=== PATIENT | female | born 1980 | race Caucasian/White ===

== ENCOUNTER 2024-05-25 15:25 | Emergency (ER) | payer MEDICAID, SELFPAY ==
[2024-05-25 15:37] VITALS: PULSE 68; RESP 18; O2SAT 98
[2024-05-25 16:07] VITALS: BP 124/84; PULSE 67; RESP 18; TEMP 37.2; O2SAT 97; BMI 44.8
--- NOTE | 2024-05-25 16:16 | XR_ITS ---
Examination: CT lumbar spine, without contrast. 2-D sagittal reconstructions. 2-D coronal reconstructions. 3-D reconstructions. Date and time of exam:May 25, 2024 1839 hrs. Indications: Onset mid back pain beginning 5 days ago CTDI: vol (mGy):45.3 DLP: (mGycm):1166 Technique: Multiple 1.25 mm axial sections of the lumbar spine without intravenous contrast have been obtained. 2-D sagittal and coronal reconstructions have been obtained. 3-D reconstructions have been obtained. Low dose protocols were performed. One or more of the following dose reduction techniques were used; automated exposure control, adjustment of the mA and/or KV according to patient size, use of iterative reconstruction technique. Findings: Adequate alignment lumbar vertebral bodies Moderate to advanced disc narrowing L4-L5 moderate disc narrowing L5-S1 No spondylolisthesis No lumbar fracture L5-S1 4 mm central disc bulge contiguous with the right S1 nerve root L4-L5 4 mm central lumbar disc bulge contiguous with the right and left L5 nerve roots L3-L4 no disc protrusion L2-L3 no disc protrusion L1-2 no disc protrusion Impression: Moderate to advanced degenerative disc disease L4-L5 L5-S1 4 mm central disc bulge contiguous with the right S1 nerve root L4-L5 4 mm central lumbar disc bulge contiguous with the right and left L5 demonstrates
--- NOTE | 2024-05-25 16:17 | PD.EDRME ---
Rapid Medical Screening Exam RME Arrival date/time: 05/25/24 15:25 44-year-old female with history of schizophrenia presents to the emergency department via EMS today complains of lower back pain Chief Complaint: Back Pain/Injury Vital signs: Vital Signs Temperature 98.9 F 05/25/24 16:07 Pulse Rate 67 05/25/24 16:07 Respiratory Rate 18 05/25/24 16:07 Blood Pressure 124/84 05/25/24 16:07 Pulse Oximetry (%) 97 05/25/24 16:07 Oxygen Delivery Method Room Air 05/25/24 16:07
[2024-05-25] MEDS: KETOROLAC INJ 60 MG/2 ML VIAL IM (16:21)
[2024-05-25] MEDS: DIAZEPAM 5 MG TABLET 10 MG PO (16:21)
[2024-05-25 16:54] LABS: Collection Type, Urine Clean Catch
[2024-05-25 17:02] LABS: Bacteria,Urine 2+; Bilirubin,Urine Negative (Negative); Blood,Urine Trace (Negative); Clarity,Urine Turbid (Clear/Hazy); Color,Urine Lt-Green (Lt Yel-Yel); Culture Indicated,Urine Contaminated; Glucose, Urine Trace (Negative); Ketones,Urine 1+ (Negative); Leukocyte Esterase,Urine Positive (Negative); Nitrite,Urine Negative (Negative); PH,Urine 6.5 (5.0-7.0); Protein,Urine 2+ (Neg - Trace); RBC,Urine 22 /hpf (0-3); Squamous Epithelial Cell,Urine 18 /hpf (0-5); WBC,Urine 22 /hpf (0-5)
[2024-05-25 17:11] LABS: Specific Gravity,Urine > 1.030 (1.001-1.035)
[2024-05-25 17:23] LABS: Basophils % (Auto) 0 % (0-2.5); Eosinophils % (Auto) 0 % (0-10); Hematocrit 35.2 % (36.0-46.0); Hemoglobin 12.1 g/dL (12.0-16.0); Immature Granulocytes % (Auto) 0 % (0-0); Immature Granulocytes Auto 0.06 Thou/mm3 (0.00-0.00); Lymphocytes # (Auto) 4.7 Thou/mm3 (1.0-4.8); Lymphocytes % (Auto) 29 % (10-50); Mean Corpuscular HGB Conc 34.4 g/dl (31.0-37.0); Mean Corpuscular Hemoglobin 29.4 pg (25.0-35.0); Mean Corpuscular Volume 86 fL (80-100); Monocytes # (Auto) 1.2 Thou/mm3 (0.0-0.8); Monocytes % (Auto) 8 % (0-12); Neutrophils # (Auto) 10.1 Thou/mm3 (1.8-7.7); Neutrophils % (Auto) 63 % (37-80); Nucleated Red Blood Cell % 0 /100 WBC (0); Platelet Count 328 Thou/mm3 (140-440); RDW Standard Deviation 43.2 fL (36.4-46.3); Red Blood Count 4.11 Miln/mm3 (4.00-5.20); White Blood Count 16.1 Thou/mm3 (3.6-11.0)
[2024-05-25 17:38] LABS: Alanine Aminotransferase 14 U/L (10-49); Albumin, Serum 4.4 gm/dL (3.5-5.0); Albumin/Globulin Ratio 1.6 (1.2-2.2); Alkaline Phosphatase 77 U/L (46-116); Anion Gap 9 (7-16); Aspartate Amino Transferase 13 U/L (0-34); BUN/Creatinine Ratio 21 Ratio (12-20); Bilirubin,Total 0.3 mg/dL (0.3-1.2); Blood Urea Nitrogen 19 mg/dL (9-23); Calcium 9.1 mg/dL (8.3-10.6); Calcium (Corrected) 9.1 mg/dL (8.5-10.1); Carbon Dioxide 22.9 mMol/L (20.0-31.0); Chloride 106 mMol/L (98-107); Creatinine (Component) 0.9 mg/dL (0.6-1.3); Estimated Creatinine Clearance 91.9 mL/min (>60); Globulin 2.7 gm/dL (2.3-3.5); Glucose 94 mg/dL (74-106); Osmolality,Calculated 277 (275-295); Potassium 3.8 mMol/L (3.4-5.1); Sodium 138 mMol/L (136-145); Total Protein 7.1 gm/dL (5.7-8.2); eGFR > 60 See Note
[2024-05-25 17:42] LABS: HCG,Qualitative Serum Negative
[2024-05-25 19:59] VITALS: BP 130/81; PULSE 60; RESP 19; TEMP 36.5; O2SAT 98
--- NOTE | 2024-05-25 20:06 | PD.EDADULT ---
ED General RME/HPI General Chief complaint: Back Pain/Injury Stated complaint: BACK PAIN Time Seen by Provider: 05/25/24 19:24 Arrival date/time: 05/25/24 15:25 CC: Left low back pain HPI onset 4 days ago, states has been taking ibuprofen without relief denies fall blunt trauma repetitive motion does not recall how it started. Patient states pain does radiate down her back of her left buttock. Patient denies bowel or bladder symptoms saddle anesthesia and complains of some mild tingling in both of her toes. Patient is awake alert oriented. RME / HPI RME / HPI narrative: 05/25/24 15:25 44-year-old female with history of schizophrenia presents to the emergency department via EMS today complains of lower back pain Related Data Home Medications ?Medication ?Instructions ?Recorded ?Confirmed divalproex 500 mg tablet,delayed 500 mg PO TID 09/14/20 03/08/23 release cyclobenzaprine 10 mg tablet 5 mg PO BID 10/24/20 03/08/23 ibuprofen 800 mg tablet 600 mg PO TID 10/24/20 03/08/23 metformin 500 mg tablet 500 mg PO BIDWM 10/24/20 03/08/23 ondansetron HCl 4 mg tablet 4 mg PO Q8HR PRN nausea and 10/24/20 03/08/23 vommitting propranolol 10 mg tablet 10 mg PO BID 10/24/20 03/08/23 trazodone 50 mg tablet 100 mg PO HS 10/24/20 03/08/23 famotidine 20 mg tablet 20 mg PO HS PRN Acid Reflux 03/08/23 03/08/23 loratadine 10 mg tablet 10 mg PO QDAY PRN Allergy Symptoms 03/08/23 03/08/23 prazosin 1 mg capsule 1 mg PO QPM 03/08/23 03/08/23 Previous Rx's ?Medication ?Instructions ?Recorded acetaminophen 325 mg tablet 325 mg PO QID PRN pain #40 tabs 02/07/22 (Tylenol) cyclobenzaprine 10 mg tablet 10 mg PO HS #14 tabs 05/25/24 prednisone 20 mg tablet See Taper PO BID 3 days #6 tabs 05/25/24 Allergies Allergy/AdvReac Type Severity Reaction Status Date / Time codeine Allergy Severe Anaphylaxis Verified 05/25/24 15:41 Iodine and Iodide Containing Allergy Severe Anaphylaxis Verified 05/25/24 15:41 Produc Review of Systems Review of Systems Narrative Review of Systems: GEN: No fever, no chills, no weight loss EYES: No discharge, no visual changes, no pain HEENT: No ear pain, no congestion, no sore throat PULM: No shortness of breath, no cough, no congestion CV: No chest pain, no dyspnea on exertion, no palpitations GI: No nausea, no vomiting, no diarrhea, + pain, no constipation : No frequency, no urgency, no dysuria MUSC/SKEL: No joint pain, no back pain SKIN: No rash PSYCH: No hallucinations, no depression HEME/LYMPH: No easy bleeding or bruising tendencies NEURO: No weakness, no headache Past Medical History Past Medical History NEUROLOGIC: Positive Seizures CARDIAC: Positive Cardiac Disorders and Hypertension; Negative Congestive Heart Failure RESPIRATORY: Negative Chronic Obstructive Pulmonary Disease (COPD) GENITOURINARY: Negative Renal Disease ENDOCRINE: Positive Endocrine Disorders; Negative Diabetes Mellitus Type 1 or Diabetes Mellitus Type 2 PSYCHO/SOCIAL: Positive Schizophrenia Social History SMOKING STATUS: Current every day smoker 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 ED Exam Narrative Physical exam: [General: Morbidly obese in mild discomfort but not in any acute distress Head normocephalic HEENT: Within acceptable limits Neck is supple nontender Chest equal chest rise nontender to palpation Respiratory: Clear to auscultation no wheezes crackles or rubs CV: Rate rhythm is regular no murmurs rubs or clicks Abdomen is grossly distended secondary to body habitus soft nontender no masses positive bowel sounds all 4 quadrants Back: Left lumbar paraspinal tenderness with palpation no spinous process tenderness no right sided paraspinal tenderness with palpation no thoracic or cervical pain with palpation. Skin: Intact no petechiae rash induration ulceration or crepitus Extremities: Moving all extremity against resistance cap refill less than 2 seconds neurosensory intact Neuro: Awake alert oriented x3 Glascow coma 15 no focal deficits] Course Course Course Narrative: Patient states the pain is improved after getting the shot while in the waiting room for pain relief. This time comfortable discharging the patient home. Quality Measures none Orders Category Date Time Status CT lumbar spine wo con Stat Exams 05/25/24 16:16 Completed CBC Stat Lab 05/25/24 17:14 Completed Comprehensive Metabolic Panel Stat Lab 05/25/24 17:14 Completed HCG,Qualitative Serum Stat Lab 05/25/24 17:14 Completed UA, C/S IF [Urinalysis, C/S if Indicated] Stat Lab 05/25/24 16:33 Completed Diazepam [Valium] Med 05/25/24 16:16 Discontinued 10 mg PO X1 ONE Ketorolac Inj [Toradol Inj] Med 05/25/24 16:16 Discontinued 60 mg IM X1 ONE Vital Signs Vital signs: Vital Signs Temperature 98.9 F 05/25/24 16:07 Pulse Rate 67 05/25/24 16:07 Respiratory Rate 18 05/25/24 16:07 Blood Pressure 124/84 05/25/24 16:07 Pulse Oximetry (%) 97 05/25/24 16:07 Oxygen Delivery Method Room Air 05/25/24 16:07 [facility] Patient data External records reviewed:: [facility] previous records Clinical information provided by:: patient Social determinants that could affect healthcare access:: none Patient has the following chronic illnesses:: Schizophrenia How is presenting disease/condition affected by chronic disease/condition?: uneffected by Evaluation data The following diagnostics were reviewed and interpreted by me:: lab results and radiology exam(s) Lab and/or radiology exams considered but not ordered:: CBC shows a leukocytosis of 16.1, H&H of 12 and 35 respectively with platelets at 328 CMP shows no acute electrolyte imbalances renal impairment transaminitis or T. bili elevation Urine is turbid, 22 RBCs 22 WBCs 18 squamous epithelial are 2+ bacteria is a contaminated specimen. CT of the spine shows a L4-5 S1 degenerative disc disease. Interpretation Summary: Low back strain with sciatica. Medications Medications considered but not ordered:: None Medication administrations:: Medication Administration History Discontinued Medications Diazepam (Diazepam 5 Mg Tablet) 10 mg PO X1 ONE Stop: 05/25/24 16:17 Last Admin: 05/25/24 16:21 Dose: 10 mg Documented By: EO Ketorolac Tromethamine (Ketorolac Inj 60 Mg/2 Ml Vial) 60 mg IM X1 ONE Stop: 05/25/24 16:17 Last Admin: 05/25/24 16:21 Dose: 60 mg Documented By: EO None Consultations Consultation(s) initiated? (list below): No Diagnosis Differential Diagnosis ED Complaint MDM: Low back fracture, low back strain UTI Most likely diagnosis given after review of the tests above:: Low back pain Admission Indicated Admission indicated?: not indicated Explain why admission is indicated or not indicated:: Stable for discharge Admission Request Was there a request for admission?: No Disposition Plan Disposition Plan: Discharge Discharge Attestation Discharge Attestation: The patient and all family members were given an opportunity to ask questions and understood the discharge instructions. Discharge instructions specifically effects, indications for sooner follow up or return to the emergency department, and the expected course of current diagnosis. Patient condition: Stable Medical Decision Making Differential Diagnosis Differential Diagnosis: Low back fracture, low back strain UTI Lab Data 05/25/24 17:14 05/25/24 17:14 Labs: Lab Results 05/25/24 05/25/24 Range/Units 16:33 17:14 WBC 16.1 H (3.6-11.0) Thou/mm3 RBC 4.11 (4.00-5.20) Miln/mm3 Hgb 12.1 (12.0-16.0) g/dL Hct 35.2 L (36.0-46.0) % MCV 86 (80-100) fL MCH 29.4 (25.0-35.0) pg MCHC 34.4 (31.0-37.0) g/dl RDW Std Deviation 43.2 (36.4-46.3) fL Plt Count 328 (140-440) Thou/mm3 Neut % (Auto) 63 (37-80) % Lymph % (Auto) 29 (10-50) % [place] % (Auto) 8 (0-12) % Eos % (Auto) 0 (0-10) % Baso % (Auto) 0 (0-2.5) % Neut # (Auto) 10.1 H (1.8-7.7) Thou/mm3 Lymph # (Auto) 4.7 (1.0-4.8) Thou/mm3 [place] # (Auto) 1.2 H (0.0-0.8) Thou/mm3 Eos # (Auto) 0.0 (0.0-0.5) Thou/mm3 Baso # (Auto) 0.0 (0.0-0.2) Thou/mm3 Immature Gran # (Auto) 0.06 H (0.00-0.00) Thou/mm3 Absolute Nucleated RBC 0.00 (0.00-0.00) Thou/mm3 Immature Gran % 0 (0-0) % Nucleated RBC % 0 (0) /100 WBC Sodium 138 (136-145) mMol/L Potassium 3.8 (3.4-5.1) mMol/L Chloride 106 (98-107) mMol/L Carbon Dioxide 22.9 (20.0-31.0) mMol/L Anion Gap 9 (7-16) BUN 19 (9-23) mg/dL Creatinine 0.9 (0.6-1.3) mg/dL Estim Creat Clear Calc 91.9 (>60) mL/min eGFR > 60 (60 - ) See Note BUN/Creatinine Ratio 21 H (12-20) Ratio Glucose 94 (74-106) mg/dL Calculated Osmolality 277 (275-295) Calcium 9.1 (8.3-10.6) mg/dL Corrected Calcium 9.1 (8.5-10.1) mg/dL Total Bilirubin 0.3 (0.3-1.2) mg/dL AST 13 (0-34) U/L ALT 14 (10-49) U/L Alkaline Phosphatase 77 (46-116) U/L Total Protein 7.1 (5.7-8.2) gm/dL Albumin 4.4 (3.5-5.0) gm/dL Globulin 2.7 (2.3-3.5) gm/dL Albumin/Globulin Ratio 1.6 (1.2-2.2) HCG, Qual Negative Ur Collection Type Clean Catch Urine Color Lt-Green A (Lt Yel-Yel) Urine Clarity Turbid A (Clear/Hazy) Urine pH 6.5 (5.0-7.0) Ur Specific [place] > 1.030 (1.001-1.035) Urine Protein 2+ A (Neg - Trace) Urine Glucose (UA) Trace (Negative) Urine Ketones 1+ A (Negative) Urine Blood Trace (Negative) Urine Nitrite Negative (Negative) Urine Bilirubin Negative (Negative) Urine Urobilinogen (Auto) 2.0 (0.0-1.0) mg/dL Ur Leukocyte Esterase Positive (Negative) Urine RBC 22 H (0-3) /hpf Urine WBC 22 H (0-5) /hpf Ur Squamous Epith Cells 18 H (0-5) /hpf Urine Bacteria 2+ A (None) Ur Culture Indicated? Contaminated Discharge Plan Plan Patient Disposition: HOME (Self Care) Patient condition on transfer: Stable Prescriptions/Referrals Prescriptions/Med Rec: New cyclobenzaprine 10 mg tablet 10 mg PO HS Qty: 14 0RF prednisone 20 mg tablet See Taper PO BID 3 Days Qty: 6 0RF Taper: Prednisone Taper 20 mg DAILY for 2 Days and 0 Hour 10 mg DAILY for 2 Days and 0 Hour 5 mg DAILY for 7 Days and 0 Hour No Action cyclobenzaprine 10 mg tablet 5 mg PO BID Patient Comments: take 1 tablet by mouth twice a day metformin 500 mg tablet 500 mg PO BIDWM Patient Comments: take 1 tablet by mouth every morning and evening with meals trazodone 50 mg tablet 100 mg PO HS Patient Comments: TAKE ONE TABLET BY MOUTH AT BEDTIME ibuprofen 800 mg tablet 600 mg PO TID Patient Comments: take 1 tablet by mouth three times a day with food if needed for headache ondansetron HCl 4 mg tablet 4 mg PO Q8HR PRN (Reason: nausea and vommitting) Patient Comments: take 1 tablet by mouth every 8 hours if needed for nausea and vomiting propranolol 10 mg tablet 10 mg PO BID Patient Comments: take 1 tablet by mouth once daily divalproex 500 mg tablet,delayed release (DR/EC) 500 mg PO TID Patient Comments: take 1 tablet by mouth twice a day acetaminophen [Tylenol] 325 mg tablet 325 mg PO QID PRN (Reason: pain) Qty: 40 0RF prazosin 1 mg Capsule 1 mg PO QPM famotidine 20 mg Tablet 20 mg PO HS PRN (Reason: Acid Reflux) loratadine 10 mg Tablet 10 mg PO QDAY PRN (Reason: Allergy Symptoms) Problem List Clinical Impression: Sciatica Patient/Caregiver Discharge Instructions Education Materials: ED Sciatica Additional Instructions: Take the medications as prescribed for temporary pain relief. There is worsening of symptoms return to your primary care doctor or the ER for further evaluation. Print Language: Persian Stand Alone Forms: Fátima Award Info., Work/School Release, Patient Portal Info Letter PA/FARMWORKER DIV[employer] CROPS Supervising Physician PA/FARMWORK[employer]OPS Supervising Physician: Kelvin Fernandez ENP
== END 2024-05-25 20:21 | disposition home or self-care (01) ==
LOC: SERX 21:02
PROVIDERS: Nurse Practitioner Primary Care; Emergency Provider Emergency Medicine
DX: M51.17 Intervertebral disc disorders with radiculopathy, lumbosacral region (principal); D72.829 Elevated white blood cell count, unspecified
CPT/HCPCS: 36415; 72131; 80053; 81001; 84703; 85025; 96372; 99284; J1885; A9270

== ENCOUNTER 2024-09-17 10:34 | Emergency (ER) | payer MEDICAID, SELFPAY ==
[2024-09-17 10:35] VITALS: PULSE 64; RESP 18; O2SAT 98; BMI 42.0
[2024-09-17 10:38] VITALS: BP 125/74; PULSE 61; RESP 18; TEMP 36.6; O2SAT 100
--- NOTE | 2024-09-17 10:41 | PD.EDADULT ---
ED General RME/HPI General Chief complaint: Seizure Stated complaint: SEIZURES Time Seen by Provider: 09/17/24 10:39 Arrival date/time: 09/17/24 10:34 RME / HPI RME / HPI narrative: DR. SOLANO MAIN ED EVALUATION: 44 year old female with past medical history significant for seizures, hypertension, schizophrenia, and methamphetamine abuse presents to the Emergency Department [facility] with complaint of seizure. At 1040 hours, patient arrived and had another seizure here. No further history obtainable at this time. Related Data Home Medications ?Medication ?Instructions ?Recorded ?Confirmed divalproex 500 mg tablet,delayed 500 mg PO TID 09/14/20 03/08/23 release cyclobenzaprine 10 mg tablet 5 mg PO BID 10/24/20 03/08/23 ibuprofen 800 mg tablet 600 mg PO TID 10/24/20 03/08/23 metformin 500 mg tablet 500 mg PO BIDWM 10/24/20 03/08/23 ondansetron HCl 4 mg tablet 4 mg PO Q8HR PRN nausea and 10/24/20 03/08/23 vommitting propranolol 10 mg tablet 10 mg PO BID 10/24/20 03/08/23 trazodone 50 mg tablet 100 mg PO HS 10/24/20 03/08/23 famotidine 20 mg tablet 20 mg PO HS PRN Acid Reflux 03/08/23 03/08/23 loratadine 10 mg tablet 10 mg PO QDAY PRN Allergy Symptoms 03/08/23 03/08/23 prazosin 1 mg capsule 1 mg PO QPM 03/08/23 03/08/23 Previous Rx's ?Medication ?Instructions ?Recorded acetaminophen 325 mg tablet 325 mg PO QID PRN pain #40 tabs 02/07/22 (Tylenol) cyclobenzaprine 10 mg tablet 10 mg PO HS #14 tabs 05/25/24 Allergies Allergy/AdvReac Type Severity Reaction Status Date / Time codeine Allergy Severe Anaphylaxis Verified 09/17/24 10:40 Iodine and Iodide Containing Allergy Severe Anaphylaxis Verified 09/17/24 10:40 Produc Review of Systems Review of Systems ROS Unobtainable: unobtainable due to medical condition Past Medical History Past Medical History NEUROLOGIC: Positive Seizures CARDIAC: Positive Cardiac Disorders and Hypertension ENDOCRINE: Positive Endocrine Disorders PSYCHO/SOCIAL: Positive Schizophrenia Social History SMOKING STATUS: Former smoker 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 ALCOHOL: Never Course Quality Measures none Orders Category Date Time Status CBC Stat Lab 09/17/24 11:00 Completed CMP [Comprehensive Metabolic Panel] Stat Lab 09/17/24 11:00 Completed LORazepam [Ativan Inj] Med 09/17/24 10:35 Discontinued 2 mg .ROUTE .STK-MED ONE LORazepam [Ativan Inj] Med 09/17/24 10:43 Discontinued 2 mg IVP X1 ONE Vital Signs Vital signs: Vital Signs Temperature 97.8 F 09/17/24 10:38 Pulse Rate 61 09/17/24 10:38 Respiratory Rate 18 09/17/24 10:38 Blood Pressure 125/74 09/17/24 10:38 Pulse Oximetry (%) 100 09/17/24 10:38 Oxygen Delivery Method Nasal Cannula 09/17/24 10:38 Oxygen Flow Rate 4 09/17/24 10:38 Discharge Plan Plan Patient Disposition: HOME (Self Care) Patient condition on transfer: Stable Prescriptions/Referrals Prescriptions/Med Rec: No Action cyclobenzaprine 10 mg tablet 5 mg PO BID Patient Comments: take 1 tablet by mouth twice a day metformin 500 mg tablet 500 mg PO BIDWM Patient Comments: take 1 tablet by mouth every morning and evening with meals trazodone 50 mg tablet 100 mg PO HS Patient Comments: TAKE ONE TABLET BY MOUTH AT BEDTIME ibuprofen 800 mg tablet 600 mg PO TID Patient Comments: take 1 tablet by mouth three times a day with food if needed for headache ondansetron HCl 4 mg tablet 4 mg PO Q8HR PRN (Reason: nausea and vommitting) Patient Comments: take 1 tablet by mouth every 8 hours if needed for nausea and vomiting propranolol 10 mg tablet 10 mg PO BID Patient Comments: take 1 tablet by mouth once daily divalproex 500 mg tablet,delayed release (DR/EC) 500 mg PO TID Patient Comments: take 1 tablet by mouth twice a day acetaminophen [Tylenol] 325 mg tablet 325 mg PO QID PRN (Reason: pain) Qty: 40 0RF cyclobenzaprine 10 mg tablet 10 mg PO HS Qty: 14 0RF prazosin 1 mg Capsule 1 mg PO QPM famotidine 20 mg Tablet 20 mg PO HS PRN (Reason: Acid Reflux) loratadine 10 mg Tablet 10 mg PO QDAY PRN (Reason: Allergy Symptoms) Referrals: Maco Lemos MD [Primary Care Provider] - In 1 week Problem List Clinical Impression: Epileptic seizure Patient/Caregiver Discharge Instructions Discharge Activity: activity as tolerated Education Materials: ED Seizure, Recurrent (Adult) Print Language: Welsh Stand Alone Forms: Fátima Award Info., Patient Portal Info Letter MDM Narrative MDM hospital course: Patient has been on Depakote since June. This is her first seizure after initiation of the Depakote. She used to be on Keppra, which flashing lights triggered a seizure in her, therefore her neurologist decided to change her to Keppra. Patient received benzodiazepine here in the emergency department and was observed for extended length of time to ensure stability before discharge. Clinical Information Provided by EMS Medical Records Reviewed EMS Meds/Rx Considered, not Ordered None Labs/Rad/Tests considered, not Ordered None Chronic Illness/Social Conditions Add or document further as needed: Seizures, hypertension, schizophrenia, and methamphetamine abuse. Lab Interpretation Labs: interpreted by nd Lab(s) interpretation(s): Basic labs are unremarkable Medication Administration(s) Medication Administration History Discontinued Medications Lorazepam (Lorazepam 2 Mg/Ml Vial) 2 mg IVP X1 ONE Stop: 09/17/24 10:44 Last Admin: 09/17/24 10:44 Dose: 2 mg Documented By: VG Lorazepam (Lorazepam 2 Mg/Ml Vial) Confirm Administered Dose 2 mg .ROUTE .STK-MED ONE Stop: 09/17/24 10:36 Last Admin: 09/17/24 10:43 Dose: Not Given Documented By: VG Non-Admin Reason: Duplicate Medication on eMAR Diagnosis Differential diagnosis: Seizure disorder, epilepsy, medication noncompliance Dispositon Disposition: Discharge Home
[2024-09-17] MEDS: LORazepam 2 MG/ML VIAL IVP (10:44)
[2024-09-17 11:07] LABS: Basophils % (Auto) 0 % (0-2.5); Eosinophils # (Auto) 0.1 Thou/mm3 (0.0-0.5); Eosinophils % (Auto) 1 % (0-10); Hematocrit 35.2 % (36.0-46.0); Hemoglobin 12.2 g/dL (12.0-16.0); Immature Granulocytes % (Auto) 0 % (0-0); Immature Granulocytes Auto 0.02 Thou/mm3 (0.00-0.00); Lymphocytes # (Auto) 2.6 Thou/mm3 (1.0-4.8); Lymphocytes % (Auto) 41 % (10-50); Mean Corpuscular HGB Conc 34.7 g/dl (31.0-37.0); Mean Corpuscular Hemoglobin 29.6 pg (25.0-35.0); Mean Corpuscular Volume 85 fL (80-100); Monocytes # (Auto) 0.4 Thou/mm3 (0.0-0.8); Monocytes % (Auto) 7 % (0-12); Neutrophils # (Auto) 3.3 Thou/mm3 (1.8-7.7); Neutrophils % (Auto) 51 % (37-80); Nucleated Red Blood Cell % 0 /100 WBC (0); Platelet Count 312 Thou/mm3 (140-440); RDW Standard Deviation 45.3 fL (36.4-46.3); Red Blood Count 4.12 Miln/mm3 (4.00-5.20); White Blood Count 6.4 Thou/mm3 (3.6-11.0)
[2024-09-17 11:14] VITALS: BP 107/75; PULSE 66; RESP 15; TEMP 36.5; O2SAT 97
[2024-09-17 11:22] LABS: Alanine Aminotransferase 18 U/L (10-49); Albumin, Serum 4.2 gm/dL (3.5-5.0); Albumin/Globulin Ratio 1.8 (1.2-2.2); Alkaline Phosphatase 77 U/L (46-116); Anion Gap 8 (7-16); BUN/Creatinine Ratio 18 Ratio (12-20); Bilirubin,Total 0.3 mg/dL (0.3-1.2); Blood Urea Nitrogen 16 mg/dL (9-23); Calcium 8.7 mg/dL (8.3-10.6); Calcium (Corrected) 8.7 mg/dL (8.5-10.1); Carbon Dioxide 25.6 mMol/L (20.0-31.0); Chloride 109 mMol/L (98-107); Creatinine (Component) 0.9 mg/dL (0.6-1.3); Estimated Creatinine Clearance 88.5 mL/min (>60); Globulin 2.3 gm/dL (2.3-3.5); Glucose 103 mg/dL (74-106); Osmolality,Calculated 286 (275-295); Potassium 4.2 mMol/L (3.4-5.1); Sodium 143 mMol/L (136-145); Total Protein 6.5 gm/dL (5.7-8.2); eGFR > 60 See Note
[2024-09-17 11:56] VITALS: BP 119/65; PULSE 67; RESP 16; TEMP 36.6; O2SAT 98
== END 2024-09-17 12:10 | disposition home or self-care (01) ==
PROVIDERS: Emergency Provider Emergency Medicine; PCP Family Medicine
DX: G40.909 Epilepsy, unspecified, not intractable, without status epilepticus (principal); F20.9 Schizophrenia, unspecified; I10 Essential (primary) hypertension
CPT/HCPCS: 36415; 80053; 85025; 96374; 99284; J2060

== ENCOUNTER 2024-10-22 16:52 | Emergency (ER) | payer MEDICAID, SELFPAY ==
[2024-10-22 16:52] VITALS: BMI 41.3
--- NOTE | 2024-10-22 16:58 | EKG_ITS ---
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
[2024-10-22 17:00] VITALS: BP 127/81; PULSE 89; RESP 17; TEMP 36.7; O2SAT 97; BMI 41.3
--- NOTE | 2024-10-22 17:03 | XR_ITS ---
Examination: PA lateral chest 2 views TECHNIQUE: Upright PA and lateral chest 2 views Date and time: October 22, 2024 1715 hours INDICATION: Chest pain shortness of breath and 8. FINDINGS: Normal heart size. No pneumonia identified. The osseous structures are intact. IMPRESSION: No active disease.
--- NOTE | 2024-10-22 17:03 | XR_ITS ---
Examination: Breast ultrasound, unilateral, right complete Date and time of exam: October 22, 2024 1746 hours INDICATIONS: Right breast pain today Technique: Real-time avalos scale ultrasonographic imaging performed right breast including all 4 quadrants as well as nipple retroareolar and axillary region. Findings: No cystic or solid mass IMPRESSION: BI-RADS Category 1: Negative study Recommend elective diagnostic mammography follow-up
--- NOTE | 2024-10-22 17:03 | PD.EDRME ---
Rapid Medical Screening Exam RME Arrival date/time: 10/22/24 16:52 44-year-old female presents department today for complaint of chest pain Chief Complaint: Chest Pain Vital signs: Vital Signs Temperature 98.0 F 10/22/24 17:00 Pulse Rate 89 10/22/24 17:00 Respiratory Rate 17 10/22/24 17:00 Blood Pressure 127/81 10/22/24 17:00 Pulse Oximetry (%) 97 10/22/24 17:00 Oxygen Delivery Method Room Air 10/22/24 17:00
[2024-10-22 17:18] LABS: Basophils # (Auto) 0.0 Thou/mm3 (0.0-0.2); Basophils % (Auto) 0 % (0-2.5); Eosinophils # (Auto) 0.1 Thou/mm3 (0.0-0.5); Eosinophils % (Auto) 1 % (0-10); Hematocrit 35.9 % (36.0-46.0); Hemoglobin 11.9 g/dL (12.0-16.0); Immature Granulocytes Auto 0.02 Thou/mm3 (0.00-0.00); Lymphocytes # (Auto) 3.1 Thou/mm3 (1.0-4.8); Lymphocytes % (Auto) 39 % (10-50); Mean Corpuscular HGB Conc 33.1 g/dl (31.0-37.0); Mean Corpuscular Hemoglobin 29.8 pg (25.0-35.0); Mean Corpuscular Volume 90 fL (80-100); Monocytes # (Auto) 0.5 Thou/mm3 (0.0-0.8); Monocytes % (Auto) 7 % (0-12); Neutrophils # (Auto) 4.2 Thou/mm3 (1.8-7.7); Neutrophils % (Auto) 53 % (37-80); Nucleated Red Blood Cell # 0.00 Thou/mm3 (0.00-0.00); Nucleated Red Blood Cell % 0 /100 WBC (0); Platelet Count 334 Thou/mm3 (140-440); RDW Standard Deviation 48.8 fL (36.4-46.3); Red Blood Count 4.00 Miln/mm3 (4.00-5.20); White Blood Count 8.0 Thou/mm3 (3.6-11.0)
[2024-10-22 17:39] LABS: Alanine Aminotransferase 13 U/L (10-49); Albumin, Serum 4.1 gm/dL (3.5-5.0); Albumin/Globulin Ratio 1.7 (1.2-2.2); Alkaline Phosphatase 77 U/L (46-116); Anion Gap 6 (7-16); Aspartate Amino Transferase 13 U/L (0-34); BUN/Creatinine Ratio 10 Ratio (12-20); Bilirubin,Total 0.2 mg/dL (0.3-1.2); Blood Urea Nitrogen 8 mg/dL (9-23); Calcium 8.6 mg/dL (8.3-10.6); Calcium (Corrected) 8.6 mg/dL (8.5-10.1); Carbon Dioxide 24.7 mMol/L (20.0-31.0); Chloride 110 mMol/L (98-107); Creatinine (Component) 0.8 mg/dL (0.6-1.3); Estimated Creatinine Clearance 98.6 mL/min (>60); Globulin 2.4 gm/dL (2.3-3.5); Glucose 111 mg/dL (74-106); Osmolality,Calculated 280 (275-295); Potassium 4.1 mMol/L (3.4-5.1); Sodium 141 mMol/L (136-145); Total Protein 6.5 gm/dL (5.7-8.2); Troponin I < 0.002 ng/mL (0.0-0.045); eGFR > 60 See Note
[2024-10-22] MEDS: IBUPROFEN TAB 400 MG TABLET 800 MG PO (18:20)
--- NOTE | 2024-10-22 19:01 | PD.EDCHEST ---
ED Chest Pain RME/HPI General Chief Complaint: Chest Pain Stated Complaint: CHEST PAIN SINCE AM Time Seen by Provider: 10/22/24 17:55 Arrival date/time: 10/22/24 16:52 RME / HPI RME / HPI narrative: 44-year-old female presents department today for complaint of chest pain. Onset of symptoms since earlier this morning, as right-sided chest pain, more on chest wall, described as dull ache, severity moderate. Patient denies any fall. Denies any cough denies any other current complaints. No medication was taken prior to ER visit. Related Data Home Medications ?Medication ?Instructions ?Recorded ?Confirmed divalproex 500 mg tablet,delayed 500 mg PO TID 09/14/20 03/08/23 release cyclobenzaprine 10 mg tablet 5 mg PO BID 10/24/20 03/08/23 ibuprofen 800 mg tablet 600 mg PO TID 10/24/20 03/08/23 metformin 500 mg tablet 500 mg PO BIDWM 10/24/20 03/08/23 ondansetron HCl 4 mg tablet 4 mg PO Q8HR PRN nausea and 10/24/20 03/08/23 vommitting propranolol 10 mg tablet 10 mg PO BID 10/24/20 03/08/23 trazodone 50 mg tablet 100 mg PO HS 10/24/20 03/08/23 famotidine 20 mg tablet 20 mg PO HS PRN Acid Reflux 03/08/23 03/08/23 loratadine 10 mg tablet 10 mg PO QDAY PRN Allergy Symptoms 03/08/23 03/08/23 prazosin 1 mg capsule 1 mg PO QPM 03/08/23 03/08/23 Previous Rx's ?Medication ?Instructions ?Recorded acetaminophen 325 mg tablet 325 mg PO QID PRN pain #40 tabs 02/07/22 (Tylenol) cyclobenzaprine 10 mg tablet 10 mg PO HS #14 tabs 05/25/24 ibuprofen 800 mg tablet 800 mg PO TID PRN pain #30 tabs 10/22/24 pantoprazole 40 mg tablet,delayed 40 mg PO QDAY #20 tabs 10/22/24 release (Protonix) Allergies Allergy/AdvReac Type Severity Reaction Status Date / Time codeine Allergy Severe Anaphylaxis Verified 10/22/24 16:54 Iodine and Iodide Containing Allergy Severe Anaphylaxis Verified 10/22/24 16:54 Produc Review of Systems Review of Systems Narrative Review of Systems: Review of system reviewed and within normal limits except mentioned in HPI ED Exam Narrative Physical exam: VITAL SIGNS: Reviewed. GENERAL APPEARANCE: Alert and interactive, follows commands, no acute distress, HEAD AND FACE: Non-traumatic. ENT: PERRL, pink conjunctivitis, eyelid no trauma, Mucous membrane moist. NECK: Supple, nontender, no nuchal rigidity. CHEST: Right chest wall tenderness, no redness noted no masses palpated, no crepitus, no paradoxical movement, no retractions. LUNGS: Clear, well ventilated, symmetric, no rales, no wheezing, no ronchi, no stridor, good breath sounds bilaterally. HEART: Regular rate, regular rhythm, no murmur, no gallops. ABDOMEN: Soft, positive bowel sounds, nondistended, no guarding, nontender, no rebound, no masses, RECTAL: Deferred. GENITAL: Deferred. NEUROLOGICAL: Gross motor function intact sensory function intact, Appropriate for age. MUSCULOSKELETAL: low back nontender, full range of motion. EXTREMITIES: Nontender, full range of motion. SKIN: Color pink, dry, no rash, no lacerations, no abrasions, no contusions. LYMPHATICS: Deferred. Course Quality Measures none Orders Category Date Time Status EKG (ED ONLY) *Do not use* NOW Care 10/22/24 16:58 Completed EKG (ED Only) Stat Exams 10/22/24 16:58 Draft US breast RT complete Stat Exams 10/22/24 17:03 Completed XR chest 2V Stat Exams 10/22/24 17:03 Completed CBC Stat Lab 10/22/24 17:10 Completed Comprehensive Metabolic Panel Stat Lab 10/22/24 17:10 Completed Troponin I Stat Lab 10/22/24 17:10 Completed Ibuprofen Tab [Motrin Tab] Med 10/22/24 17:37 Discontinued 800 mg PO X1 ONE Vital Signs Vital signs: Vital Signs Temperature 98.0 F 10/22/24 17:00 Pulse Rate 89 10/22/24 17:00 Respiratory Rate 17 10/22/24 17:00 Blood Pressure 127/81 10/22/24 17:00 Pulse Oximetry (%) 97 10/22/24 17:00 Oxygen Delivery Method Room Air 10/22/24 17:00 Chest Pain MDM Narrative MDM Narrative:: 44-year-old female presents department today for complaint of chest pain. Onset of symptoms since earlier this morning, as right-sided chest pain, more on chest wall, described as dull ache, severity moderate. Patient denies any fall. Denies any cough denies any other current complaints. No medication was taken prior to ER visit. Chest x-ray came back unremarkable. Laboratory workup including troponin also came back normal. EKG showed normal sinus rhythm, ventricular rate of 84 bpm, no ST segment elevation or depression noted. Ultrasound of the breast also came back normal. Results discussed with the patient Patient data External records reviewed:: None Clinical information provided by:: patient Social determinants that could affect healthcare access:: none Patient has the following chronic illnesses:: None How is presenting disease/condition affected by chronic disease/condition?: no chronic disease Evaluation data The following diagnostics were reviewed and interpreted by me:: lab results, radiology exam(s) and EKG tracing(s) Lab and/or radiology exams considered but not ordered:: None Interpretation Summary: See results in MDM Medications / Prescriptions Medications or Prescriptions considered but not ordered:: None Medication administrations:: Medication Administration History Discontinued Medications Ibuprofen (Ibuprofen Tab 400 Mg Tablet) 800 mg PO X1 ONE Stop: 10/22/24 17:38 Last Admin: 10/22/24 18:20 Dose: 800 mg Documented By: Motrin Consultations Consultation(s) initiated? (list below): No Diagnosis Chest Pain Differential Diagnosis: costochondritis and chest pain Most likely diagnosis given after review of the tests above:: Chest wall pain Admission Indicated Admission indicated?: not indicated Admission Request Was there a request for admission?: No Disposition Plan Disposition Plan: Discharge Discharge Attestation Discharge Attestation: The patient was given an opportunity to ask questions and understood the discharge instructions. Discharge instructions specifically effects, indications for sooner follow up or return to the emergency department, and the expected course of current diagnosis. Patient condition: Stable Discharge Plan Plan Patient Disposition: HOME (Self Care) Discharge Disposition comment: Stable Prescriptions/Referrals Prescriptions/Med Rec: New ibuprofen 800 mg tablet 800 mg PO TID PRN (Reason: pain) Qty: 30 0RF pantoprazole [Protonix] 40 mg tablet,delayed release (DR/EC) 40 mg PO QDAY Qty: 20 0RF No Action cyclobenzaprine 10 mg tablet 5 mg PO BID Patient Comments: take 1 tablet by mouth twice a day metformin 500 mg tablet 500 mg PO BIDWM Patient Comments: take 1 tablet by mouth every morning and evening with meals trazodone 50 mg tablet 100 mg PO HS Patient Comments: TAKE ONE TABLET BY MOUTH AT BEDTIME ibuprofen 800 mg tablet 600 mg PO TID Patient Comments: take 1 tablet by mouth three times a day with food if needed for headache ondansetron HCl 4 mg tablet 4 mg PO Q8HR PRN (Reason: nausea and vommitting) Patient Comments: take 1 tablet by mouth every 8 hours if needed for nausea and vomiting propranolol 10 mg tablet 10 mg PO BID Patient Comments: take 1 tablet by mouth once daily divalproex 500 mg tablet,delayed release (DR/EC) 500 mg PO TID Patient Comments: take 1 tablet by mouth twice a day acetaminophen [Tylenol] 325 mg tablet 325 mg PO QID PRN (Reason: pain) Qty: 40 0RF cyclobenzaprine 10 mg tablet 10 mg PO HS Qty: 14 0RF prazosin 1 mg Capsule 1 mg PO QPM famotidine 20 mg Tablet 20 mg PO HS PRN (Reason: Acid Reflux) loratadine 10 mg Tablet 10 mg PO QDAY PRN (Reason: Allergy Symptoms) Referrals: Maco Lemos MD [Primary Care Provider] - In 1 week Problem List Clinical Impression: Costalchondritis Patient/Caregiver Discharge Instructions Discharge Activity: activity as tolerated Education Materials: Costochondritis Additional Instructions: Thank you for the opportunity for serving you today. You are stable for discharged . You are advised to: Follow-up with your PCP in 1 to 2 days Return to ED for worsening of symptoms Increase oral fluids Take medication as prescribed Print Language: Kiswahili Stand Alone Forms: Fátima Award Info., Patient Portal Info Letter PA/LOADING RACK SUPERVISOR Supervising Physician PA/LÁZARO Supervising Physician: Jose Molina
== END 2024-10-22 20:03 | disposition home or self-care (01) ==
PROVIDERS: Nurse Practitioner Primary Care; Emergency Provider Emergency Medicine; PCP Family Medicine
DX: M94.0 Chondrocostal junction syndrome [Tietze] (principal); N64.4 Mastodynia; R94.31 Abnormal electrocardiogram [ECG] [EKG]
CPT/HCPCS: 36415; 71046; 76641; 80053; 84484; 85025; 93005; 99283; A9270

== ENCOUNTER 2024-11-17 15:21 | Emergency (ER) | payer MEDICAID, SELFPAY ==
[2024-11-17 15:34] VITALS: BP 144/88; PULSE 80; RESP 18; TEMP 36.7; O2SAT 97
[2024-11-17 15:55] VITALS: PULSE 88; RESP 16; BMI 42.0
[2024-11-17 17:04] VITALS: BP 129/62; PULSE 66; RESP 19; TEMP 36.7; O2SAT 97
--- NOTE | 2024-11-17 17:13 | EKG_ITS ---
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
--- NOTE | 2024-11-17 17:14 | XR_ITS ---
Examination: CT brain head without contrast. 2-D sagittal coronal reconstructions Date and time of exam:November 17, 2024 1820 hours INDICATIONS: Seizures followed by headache and dizziness today, seizure March 09, 2023 CTDI: vol (mGy):48.8 DLP: (mGycm):985 Technique: Multiple CT axial sections of the brain have been obtained, 5 mm slice thickness. Contrast has not been administered. 2-D sagittal, coronal reconstructions have been obtained Low dose protocols were performed. One or more of the following dose reduction techniques were used; automated exposure control, adjustment of the mA and/or KV according to patient size, use of iterative reconstruction technique. Findings: No significant ventricular enlargement. Intra-axial or extra-axial hemorrhage density is not seen. No mass effect or midline shift Basal cisterns are not remarkable. Fourth ventricle is midline. Cranial vault intact. Stable sclerotic foci right frontal bone Impression: Negative for acute hemorrhage, mass effect or midline shift Consider elective repeat brain MRI follow-up, seizure protocol
--- NOTE | 2024-11-17 17:15 | EDNOTE_ITS ---
ED Seizures RME/HPI General Chief Complaint: Seizure Stated Complaint: ANXIETY Time Seen by Provider: 11/17/24 17:19 Source: patient Arrival date/time: 11/17/24 15:21 44-year-old female with a history of seizures, methamphetamine abuse, hypertension, schizophrenia presents to the emergency room with a chief complaint of weakness, generalized pain, and a seizure this morning Mode of arrival: ambulatory Limitations: no limitations Related Data Home Medications ?Medication ?Instructions ?Recorded ?Confirmed divalproex 500 mg tablet,delayed 500 mg PO TID 1 03/08/23 release cyclobenzaprine 10 mg tablet 5 mg PO BID 10/24/2004/30 ibuprofen 800 mg tablet 600 mg PO TID 10/24/2003/08 metformin 500 mg tablet 500 mg PO BIDWM 10/24/2004/30 ondansetron HCl 4 mg tablet 4 mg PO Q8HR PRN nausea an d 10/24/20 03/08/23 vommitting propranolol 10 mg tablet 10 mg PO BID 10/24/20 trazodone 50 mg tablet 100 mg PO HS 10/24/20 famotidine 20 mg tablet 20 mg PO HS PRN Acid Reflux 03/08/23 03/08/23 loratadine 10 mg tablet 10 mg PO QDAY PRN Allergy Sy mptoms 03/08/23 03/08/23 prazosin 1 mg capsule 1 mg PO QPM 03/08/23 3 Previous Rx's ?Medication ?Instructions ?Recorded acetaminophen 325 mg tablet 325 mg PO QID PRN pain #40 tabs 02/07/22 (Tylenol) cyclobenzaprine 10 mg tablet 10 mg PO HS #14 tabs 05/09 10/30 ibuprofen 800 mg tablet 800 mg PO TID PRN pain #30 t abs 10/22/24 pantoprazole 40 mg tablet,delayed 40 mg PO QDAY #20 ta bs 10/22/24 release (Protonix) Allergies Allergy/AdvReac Type Severity Reaction Status Date / Time codeine Allergy Severe Anaphylaxis Verified 10/22/24 16:54 Iodine and Iodide Containing Allergy Severe Anaphylaxis Verified 10/22/24 16:54 Produc Review of Systems Review of Systems Systems Reviewed: All systems reviewed, normal except as documented Constitutional Constitutional: Reports system reviewed and no additional complaints, except as documented, Denies fatigue, Denies fever(s), Reports headache(s) and Reports weakness Eyes Eyes: Reports system reviewed and no additional complaints, except as documented, Denies blurry vision and Denies change in vision ENT Ears, Nose, Mouth, and Throat: Reports system reviewed and no additional com plaints, except as documented, Denies otalgia, Reports headache(s), Denies nasal congestion, Denies throat swelling and Denies vertigo Cardiovascular Cardiovascular: Reports system reviewed and no additional complaints, except as documented, Denies chest pain, Denies dyspnea and Denies dyspnea on exertion Respiratory Respiratory: Reports system reviewed and no additional complaints, except as documented, Denies chest congestion, Denies cough, Denies dyspnea, Denies dyspnea on exertion and Denies wheezing Gastrointestinal Gastrointestinal: Reports system reviewed and no additional complaints, except as documented, Denies abdominal pain, Denies cramping, Denies nausea and Denies vomiting Genitourinary Genitourinary: Reports system reviewed and no additional complaints, except as documented Musculoskeletal Musculoskeletal: Reports system reviewed and no additional complaints, except as documented and Denies back pain Integumentary/Breasts Skin/Breast: Reports system reviewed and no additional complaints, except as documented and Denies wounds Neurologic Neurologic: Reports system reviewed and no additional complaints, except as documented, Denies confusion, Reports headache(s), Denies lack of coordination, Reports seizure-like activity, Denies vertigo and Reports weakness Psychiatric Psychiatric: Reports system reviewed and no additional complaints, except as documented, Denies anxiety, Denies confusion, Denies depression, Denies paranoia, Denies suicidal ideation and Denies tactile hallucinations Endocrine Endocrine: Reports system reviewed and no additional complaints, except as documented and Denies fatigue Hematologic/Lymphatic Hematologic/Lymphatic: Reports system reviewed and no additional complaints, except as documented and Denies lymphadenopathy Allergic/Immunologic Allergic/Immunologic: Reports system reviewed and no additional complaints, except as documented, Denies throat swelling, Denies urticaria and Denies wheezing ED Exam General Limitations: Present no limitations General appearance: Present alert and in no apparent distress Head Head exam: Present atraumatic, normocephalic and normal inspection Eye Eye exam: Present normal appearance, PERRL and EOMI ENT ENT exam: Present normal exam, normal oropharynx and mucous membranes moist Neck Neck exam: Present normal inspection, full ROM and trachea midline Chest Chest inspection: Present normal inspection and symmetric chest wall rise Respiratory Respiratory exam: Present normal lung sounds bilaterally Cardiovascular Cardiovascular exam: Present regular rate, normal rhythm and normal heart sounds Abdominal Exam Abdominal exam: Present soft and normal bowel sounds Extremities Exam Extremities exam: Present normal inspection and full ROM Back Exam Back exam: Present normal inspection and full ROM Neurological Exam Neurological exam: Present alert, oriented X3, CN II-XII intact, normal gait and reflexes normal Expanded Neurological Exam Patient oriented to: Present person, place and time Speech: Present fluid speech Cranial nerves: Normal: EOM function (II, III, IV, ) and facial sensation (V) Cerebellar function: Present normal gait Motor strength - LUE: 5/5 Motor strength - RUE: 5/5 Motor strength - LLE: 5/5 Motor strength - RLE: 5/5 Coma scale eye opening: spontaneous Coma scale motor response: obeys commands Coma scale verbal response: oriented Coma scale total: 15 Psychiatric Psychiatric exam: Present normal affect and normal mood Skin Skin exam: Present warm, dry, intact and normal color Course Quality Measures none Orders Category Date Time Status EKG (ED ONLY) *Do not use* NOW Care 11/17/24 17:[address] head/brain wo con Stat Exams 11/17/24 17:14 Completed EKG (ED Only) Stat Exams 11/17/24 17:13 Draft B-Type Natriuretic Peptide Stat Lab 11/17/24 17:33 Completed CBC Stat Lab 11/17/24 17:33 Completed Comprehensive Metabolic Panel Stat Lab 11/17/24 17:33 Completed Drug Screen,Urine Stat Lab 11/17/24 18:25 Completed HCG Qualitative,Urine Stat Lab 11/17/24 18:25 Completed Troponin I Stat Lab 11/17/24 17:33 Completed Urinalysis Stat Lab 11/17/24 18:25 Completed levETIRAcetam INJ [Keppra Inj] Med 11/17/24 17:14 Discontinued 1,000 mg IVP X1 ONE Vital Signs Vital signs: Vital Signs Temperature 98.0 F 11/17/24 15:34 Pulse Rate 80 11/17/24 15:34 Respiratory Rate 18 11/17/24 15:34 Blood Pressure 144/88 H 11/17/24 15:34 Pulse Oximetry (%) 97 11/17/24 15:34 Oxygen Delivery Method Room Air 11/17/24 15:34 PROCEDURES: EKG Interpretation #1: Date of EK11/17/24 Rate: 59 Interpretation: Reviewed by me Seizure MDM Narrative MDM Narrative:: 44-year-old female with a history of seizures, methamphetamine abuse, hype rtension, schizophrenia presents to the emergency room with a chief complaint of weakness, generalized pain, and a seizure this morning Patient is hemodynamically stable and in no apparent distress Physical examination shows a normal neurological exam. The patient is a GCS of 15 she is alert and oriented x 3 pupils are PERRLA EOMs are intact cranial reflexes are intact. Patient states her last seizure was 1 month ago. When EMS dropped off the patient they stated they did not find any antiseizure medication. Patient states she is on Keppra but states that she does not know how the medication looks and states she has not been taking it. CBC CMP troponin was within normal limits. CT of the head and brain was within normal limits. The patient was discharged and educated to be compliant with her seizure medication. The patient was also educated to stop using methamphetamine Patient was discharged and educated to follow-up with primary care provider in the next 24 to 48 hours and return to the emergency room for any evidence of worsening signs or symptoms Patient data External records reviewed:: [facility] previous records Clinical information provided by:: patient Social determinants that could affect healthcare access:: none Patient has the following chronic illnesses:: No chronic illness How is presenting disease/condition affected by chronic disease/condition?: no chronic disease Evaluation data The following diagnostics were reviewed and interpreted by me:: lab results and radiology exam(s) Lab and/or radiology exams considered but not ordered:: Labs and radiology exams considered and ordered Interpretation Summary: CT head and brain-Findings: No significant ventricular enlargement. Intra-axial or extra-axial hemorrhage density is not seen. No mass effect or midline shift Basal cisterns are not remarkable. Fourth ventricle is midline. Cranial vault intact. Stable sclerotic foci right frontal bone Impression: Negative for acute hemorrhage, mass effect or midline shift Consider elective repeat brain MRI follow-up, seizure protocol Medications / Prescriptions Medications or Prescriptions considered but not ordered:: Medication given Medication administrations:: Medication Administration History Discontinued Medications Levetiracetam (Levetiracetam Inj 100 Mg/Ml Vial 5ml) 1,000 mg IVP X1 ONE Stop: 11/17/24 17:15 Last Admin: 11/17/24 17:25 Dose: 1,000 mg Documented By: EF Medication given Consultations Consultation(s) initiated? (list below): No Diagnosis Seizure Differential Diagnosis: focal seizure, generalized seizure, epileptic seizure and status epilepticus Most likely diagnosis given after review of the tests above:: Generalized seizure Admission Indicated Admission indicated?: not indicated Admission Request Was there a request for admission?: No Disposition Plan Disposition Plan: Discharge Discharge Attestation Discharge Attestation: The patient and all family members were given an opportunity to ask questions and understood the discharge instructions. Discharge instructions specifically effects, indications for sooner follow up or return to the emergency department, and the expected course of current diagnosis. Patient condition: Stable Discharge Plan Plan Patient Disposition: HOME (Self Care) Discharge Disposition comment: Stable Prescriptions/Referrals Prescriptions/Med Rec: No Action cyclobenzaprine 10 mg tablet 5 mg PO BID Patient Comments: take 1 tablet by mouth twice a day metformin 500 mg tablet 500 mg PO BIDWM Patient Comments: take 1 tablet by mouth every morning and evening with meals trazodone 50 mg tablet 100 mg PO HS Patient Comments: TAKE ONE TABLET BY MOUTH AT BEDTIME ibuprofen 800 mg tablet 600 mg PO TID Patient Comments: take 1 tablet by mouth three times a day with food if needed for headache ondansetron HCl 4 mg tablet 4 mg PO Q8HR PRN (Reason: nausea and vommitting) Patient Comments: take 1 tablet by mouth every 8 hours if needed for nausea and vomiting propranolol 10 mg tablet 10 mg PO BID Patient Comments: take 1 tablet by mouth once daily divalproex 500 mg tablet,delayed release (DR/EC) 500 mg PO TID Patient Comments: take 1 tablet by mouth twice a day acetaminophen [Tylenol] 325 mg tablet 325 mg PO QID PRN (Reason: pain) Qty: 40 0RF cyclobenzaprine 10 mg tablet 10 mg PO HS Qty: 14 0RF ibuprofen 800 mg tablet 800 mg PO TID PRN (Reason: pain) Qty: 30 0RF pantoprazole [Protonix] 40 mg tablet,delayed release (DR/EC) 40 mg PO QDAY Qty: 20 0RF prazosin 1 mg Capsule 1 mg PO QPM famotidine 20 mg Tablet 20 mg PO HS PRN (Reason: Acid Reflux) loratadine 10 mg Tablet 10 mg PO QDAY PRN (Reason: Allergy Symptoms) Referrals: Maco Lemos MD [Primary Care Provider] - In 1 week Problem List Clinical Impression: Generalized seizure Patient/Caregiver Discharge Instructions Education Materials: ED Seizure, Recurrent (Adult) Additional Instructions: Please follow-up with your primary care provider and urologist in the next 24 to 48 hours Please take your seizure medication as prescribed and do not miss any doses For any evidence of worsening signs or symptoms please return to the emergency room immediately Print Language: Urdu Stand Alone Forms: Fátima Award Info., Patient Portal Info Letter PA/COMPUTING CONSULTANT Supervising Physician PA/COMPUTING CONSULTANT Supervising Physician: Dr. Andrews
[2024-11-17] MEDS: levETIRAcetam INJ 100 MG/ML VIAL 5ML 1000 MG IVP (17:25)
[2024-11-17 17:49] LABS: Basophils # (Auto) 0.0 Thou/mm3 (0.0-0.2); Basophils % (Auto) 0 % (0-2.5); Eosinophils # (Auto) 0.1 Thou/mm3 (0.0-0.5); Eosinophils % (Auto) 1 % (0-10); Hematocrit 39.6 % (36.0-46.0); Hemoglobin 12.9 g/dL (12.0-16.0); Immature Granulocytes Auto 0.02 Thou/mm3 (0.00-0.00); Lymphocytes # (Auto) 3.7 Thou/mm3 (1.0-4.8); Lymphocytes % (Auto) 35 % (10-50); Mean Corpuscular HGB Conc 32.6 g/dl (31.0-37.0); Mean Corpuscular Hemoglobin 29.1 pg (25.0-35.0); Mean Corpuscular Volume 89 fL (80-100); Monocytes # (Auto) 0.9 Thou/mm3 (0.0-0.8); Monocytes % (Auto) 8 % (0-12); Neutrophils # (Auto) 5.9 Thou/mm3 (1.8-7.7); Neutrophils % (Auto) 56 % (37-80); Nucleated Red Blood Cell # 0.00 Thou/mm3 (0.00-0.00); Nucleated Red Blood Cell % 0 /100 WBC (0); Platelet Count 384 Thou/mm3 (140-440); RDW Standard Deviation 46.7 fL (36.4-46.3); Red Blood Count 4.44 Miln/mm3 (4.00-5.20); White Blood Count 10.5 Thou/mm3 (3.6-11.0)
[2024-11-17 18:15] LABS: Alanine Aminotransferase 11 U/L (10-49); Albumin, Serum 4.6 gm/dL (3.5-5.0); Albumin/Globulin Ratio 1.8 (1.2-2.2); Alkaline Phosphatase 70 U/L (46-116); Anion Gap 5 (7-16); Aspartate Amino Transferase 13 U/L (0-34); BUN/Creatinine Ratio 13 Ratio (12-20); Bilirubin,Total 0.3 mg/dL (0.3-1.2); Blood Urea Nitrogen 13 mg/dL (9-23); Calcium 9.3 mg/dL (8.3-10.6); Calcium (Corrected) 9.3 mg/dL (8.5-10.1); Carbon Dioxide 26.7 mMol/L (20.0-31.0); Chloride 109 mMol/L (98-107); Creatinine (Component) 1.0 mg/dL (0.6-1.3); Estimated Creatinine Clearance 79.7 mL/min (>60); Globulin 2.6 gm/dL (2.3-3.5); Glucose 82 mg/dL (74-106); Osmolality,Calculated 280 (275-295); Potassium 3.8 mMol/L (3.4-5.1); Sodium 141 mMol/L (136-145); Total Protein 7.2 gm/dL (5.7-8.2); Troponin I < 0.002 ng/mL (0.0-0.045); eGFR > 60 See Note
[2024-11-17 18:26] LABS: B-Type Natriuretic Peptide < 20 pg/mL (0-100)
[2024-11-17 18:27] LABS: Collection Type, Urine Clean Catch
[2024-11-17 18:48] LABS: Bacteria,Urine Rare; Bilirubin,Urine Negative (Negative); Blood,Urine 2+ (Negative); Clarity,Urine Clear (Clear/Hazy); Color,Urine Yellow (Lt Yel-Yel); Glucose, Urine Negative (Negative); Ketones,Urine 1+ (Negative); Leukocyte Esterase,Urine Negative (Negative); Nitrite,Urine Negative (Negative); PH,Urine 5.5 (5.0-7.0); Protein,Urine Trace (Neg - Trace); RBC,Urine 3 /hpf (0-3); Specific Gravity,Urine 1.031 (1.001-1.035); Squamous Epithelial Cell,Urine 7 /hpf (0-5); Urobilinogen,Urine Negative mg/dL (0.0-1.0); WBC,Urine 3 /hpf (0-5)
[2024-11-17 18:54] LABS: Amphetamine/Methamp Scrn,U Positive (Negative); Barbiturate Screen,Urine Negative (Negative); Benzodiazepines Screen,Urine Negative (Negative); Benzoylecgonine Screen, Ur Negative (Negative); Fentanyl Screen,Urine Negative (Negative); Opiate Screen,Urine Negative (Negative); THC Screen,Urine Positive (Negative)
[2024-11-17 18:56] LABS: HCG Qualitative,Urine Negative
[2024-11-17 20:21] VITALS: BP 154/96; PULSE 81; RESP 15; TEMP 36.6; O2SAT 99
== END 2024-11-17 20:23 | disposition home or self-care (01) ==
PROVIDERS: Nurse Practitioner Family; Emergency Provider Family Medicine; PCP Family Medicine
DX: R56.9 Unspecified convulsions (principal); I10 Essential (primary) hypertension; F20.9 Schizophrenia, unspecified; R00.1 Bradycardia, unspecified
CPT/HCPCS: 36415; 70450; 80053; 80307; 81001; 81025; 83880; 84484; 85025; 93005; 96374; 99283; J1953

== ENCOUNTER 2024-11-18 09:15 | Emergency (ER) | payer MEDICAID, SELFPAY ==
--- NOTE | 2024-11-18 09:30 | EKG_ITS ---
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
--- NOTE | 2024-11-18 09:32 | XR_ITS ---
Examination: CT brain head without contrast. 2-D sagittal coronal reconstructions Date and time of exam:November 18, 2024 1030 hours INDICATIONS: Headache with seizure today COMPARISON: November 17, 2024 CTDI: vol (mGy):50.7 DLP: (mGycm):1020 Technique: Multiple CT axial sections of the brain have been obtained, 5 mm slice thickness. Contrast has not been administered. 2-D sagittal, coronal reconstructions have been obtained Low dose protocols were performed. One or more of the following dose reduction techniques were used; automated exposure control, adjustment of the mA and/or KV according to patient size, use of iterative reconstruction technique. Findings: No significant ventricular enlargement. Intra-axial or extra-axial hemorrhage density is not seen. No mass effect or midline shift Basal cisterns are not remarkable. Fourth ventricle is midline. Cranial vault intact. Impression: Negative for acute hemorrhage, mass effect or midline shift Again, recommend repeat brain MRI follow-up, pre and postcontrast, seizure protocol
--- NOTE | 2024-11-18 09:34 | PD.EDSEIZ ---
ED Seizures RME/HPI General Chief Complaint: Seizure Stated Complaint: SEIZURE TODAY Time Seen by Provider: 11/18/24 09:30 Arrival date/time: 11/18/24 09:15 RME / HPI RME / HPI Narrative: 44 year old female with history of seizures, hypertension, schizophrenia presents to the ED for evaluation of a seizure. The patient reports that, according to her roommates she had a seizure this morning. Attempted to see her PCP today for a medication refill but told there were no appointments available until 12/25/2024. Was advised to come to the ED for further evaluation and medication management. Patient reports she ran out of her Topamax approximately several weeks ago. In the ED, she complains of feeling shaky, dizzy, and experiencing generalized body aches. She also reports a 3-day history of nausea and vomiting. Denies fever, chills, chest pain, cough, sore throat, diarrhea, constipation, or urinary symptoms. The patient was previously on Keppra but was switched to Topamax about one year ago. She was last evaluated by her neurologist around that time. Related Data Home Medications ?Medication ?Instructions ?Recorded ?Confirmed divalproex 500 mg tablet,delayed 500 mg PO TID 09/14/20 03/08/23 release cyclobenzaprine 10 mg tablet 5 mg PO BID 10/24/20 03/08/23 ibuprofen 800 mg tablet 600 mg PO TID 10/24/20 03/08/23 metformin 500 mg tablet 500 mg PO BIDWM 10/24/20 03/08/23 ondansetron HCl 4 mg tablet 4 mg PO Q8HR PRN nausea and 10/24/20 03/08/23 vommitting propranolol 10 mg tablet 10 mg PO BID 10/24/20 03/08/23 trazodone 50 mg tablet 100 mg PO HS 10/24/20 03/08/23 famotidine 20 mg tablet 20 mg PO HS PRN Acid Reflux 03/08/23 03/08/23 loratadine 10 mg tablet 10 mg PO QDAY PRN Allergy Symptoms 03/08/23 03/08/23 prazosin 1 mg capsule 1 mg PO QPM 03/08/23 03/08/23 Previous Rx's ?Medication ?Instructions ?Recorded acetaminophen 325 mg tablet 325 mg PO QID PRN pain #40 tabs 02/07/22 (Tylenol) cyclobenzaprine 10 mg tablet 10 mg PO HS #14 tabs 05/25/24 ibuprofen 800 mg tablet 800 mg PO TID PRN pain #30 tabs 10/22/24 pantoprazole 40 mg tablet,delayed 40 mg PO QDAY #20 tabs 10/22/24 release (Protonix) topiramate 50 mg tablet (Topamax) 50 mg PO BID #60 tabs 11/18/24 Allergies Allergy/AdvReac Type Severity Reaction Status Date / Time codeine Allergy Severe Anaphylaxis Verified 11/18/24 09:22 Iodine and Iodide Containing Allergy Severe Anaphylaxis Verified 11/18/24 09:22 Produc Review of Systems Review of Systems Systems Reviewed: All systems reviewed, normal except as documented Past Medical History Past Medical History NEUROLOGIC: Positive Seizures CARDIAC: Positive Cardiac Disorders and Hypertension ENDOCRINE: Positive Endocrine Disorders PSYCHO/SOCIAL: Positive Schizophrenia, Bipolar Disorder and Depression Surgical History SURGICAL: Positive Section Social History SMOKING STATUS: Former smoker 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 Abd: Soft, mild discomfort in the upper abdomen, no rebound, no guarding, no HSM noted to palpation Extremities: No deformities, no edema noted Neuro: AAOx3, no acute neuro deficit noted. On arrival visualized generalized body shaking that lasted for ~10 seconds with immediate ability to converse and answer questions after episode, while in the ED patient had two of those episodes. Skin: Warm, dry, intact Course Course Course Narrative: 1400h: Patient's magnesium noted to be mildly low at 1.3. No other acute significant concerning abnormalities noted on labs. CT head is negative for acute process. Patient remains vitally stable. The seizure episodes that were noted appeared to be nonepileptic in nature. Patient states that she takes Topamax, will give refill for home as she is out. Has an appointment with her primary doctor on the ninth of next month. Believe patient is stable for discharge home, will need outpatient follow-up with PCP. Would also recommend avoiding any further use of marijuana or other illicit substances. Magnesium replaced today. Return precautions advised. Quality Measures none Orders Category Date Time Status Marina Porter STAT Care 11/18/24 09:31 Active Continuous Pulse Oximetry STAT Care 11/18/24 09:31 Completed EKG (ED ONLY) *Do not use* NOW Care 11/18/24 09:31 Completed Insert IV STAT Care 11/18/24 09:31 Active Seizure precautions NOW Care 11/18/24 09:[address] head/brain wo con Stat Exams 11/18/24 09:32 Completed EKG (ED Only) Stat Exams 11/18/24 09:30 Draft CBC Stat Lab 11/18/24 10:03 Completed Comprehensive Metabolic Panel Stat Lab 11/18/24 10:03 Completed Drug Screen,Urine Stat Lab 11/18/24 11:15 Completed HCG,Qualitative Serum Stat Lab 11/18/24 10:03 Completed Lipase Stat Lab 11/18/24 10:03 Completed Magnesium Stat Lab 11/18/24 10:03 Completed Prolactin* Stat Lab 11/18/24 10:03 Received Urinalysis Stat Lab 11/18/24 11:15 Completed Acetaminophen Ivpb [Ofirmev Inj] Med 11/18/24 11:22 Discontinued 1,000 mg in 100 ml IV NOW Magnesium Sulfate 2 GM Ivpb [Magnesium Sulfate Ivpb] Med 11/18/24 14:02 Active 2 gm in 50 ml IV X1 Prochlorperazine Inj [Compazine Inj] Med 11/18/24 09:30 Discontinued 10 mg IVP X1 ONE Vital Signs Vital signs: Vital Signs Temperature 98.1 F 11/18/24 09:45 Pulse Rate 72 11/18/24 09:45 Respiratory Rate 16 11/18/24 09:45 Blood Pressure 119/90 H 11/18/24 09:45 Pulse Oximetry (%) 96 11/18/24 09:45 Oxygen Delivery Method Room Air 11/18/24 09:45 Pulse ox is 96% on room air which is adequate. Seizure MDM Narrative MDM Narrative:: IToya, am scribing for and in the presence of Dr. Smith. Patient data External records reviewed:: [facility] previous records (I reviewed ED Visit from yesterday 11/17/2024 ) Clinical information provided by:: patient Social determinants that could affect healthcare access:: none Patient has the following chronic illnesses:: Seizures, hypertension, schizophrenia How is presenting disease/condition affected by chronic disease/condition?: exacerbated by Evaluation data The following diagnostics were reviewed and interpreted by me:: lab results and EKG tracing(s) (11/18/2024 @ 09:33 AM. NSR, rate 83, no STEMI ) Lab and/or radiology exams considered but not ordered:: None Interpretation Summary: Ordering Physician: Rebecca Smith MD Date of Service: 11/18/24 Procedure(s): CT head/brain wo con Accession Number(s): [id number] cc: Maco Lemos MD; Cade Mederos MD; Rebecca Smith MD~ Examination: CT brain head without contrast. 2-D sagittal coronal reconstructions Date and time of exam:November 18, 2024 1030 hours INDICATIONS: Headache with seizure today COMPARISON: November 17, 2024 CTDI: vol (mGy):50.7 DLP: (mGycm):1020 Technique: Multiple CT axial sections of the brain have been obtained, 5 mm slice thickness. Contrast has not been administered. 2-D sagittal, coronal reconstructions have been obtained Low dose protocols were performed. One or more of the following dose reduction techniques were used; automated exposure control, adjustment of the mA and/or KV according to patient size, use of iterative reconstruction technique. Findings: No significant ventricular enlargement. Intra-axial or extra-axial hemorrhage density is not seen. No mass effect or midline shift Basal cisterns are not remarkable. Fourth ventricle is midline. Cranial vault intact. Impression: Negative for acute hemorrhage, mass effect or midline shift Again, recommend repeat brain MRI follow-up, pre and postcontrast, seizure protocol Dictated By: Cade Mederos MD Signed By: <Electronically signed by Cade Mederos MD in OV> 11/18/24 1115 Medications / Prescriptions Medications or Prescriptions considered but not ordered:: None Medication administrations:: Medication Administration History Magnesium Sulfate (Magnesium Sulfate Ivpb) 2 gm in 50 mls @ 25 mls/hr IV X1 ONE Stop: 11/18/24 16:01 Last Admin: 11/18/24 14:35 Dose: 25 mls/hr Documented By: EF Discontinued Medications Acetaminophen (Ofirmev Inj) 1,000 mg in 100 mls @ 250 mls/hr IV NOW ONE Stop: 11/18/24 11:45 Last Infusion: 11/18/24 11:57 Dose: Infused Documented By: Admin: 11/18/24 11:33 Dose: 250 mls/hr Documented By: KEVIN Prochlorperazine Edisylate (Prochlorperazine Inj 5 Mg/Ml Vial 2 Ml) 10 mg IVP X1 ONE Stop: 11/18/24 09:31 Last Admin: 11/18/24 10:15 Dose: 10 mg Documented By: CURT See above Consultations Consultation(s) initiated? (list below): No Diagnosis Seizure Differential Diagnosis: intractable seizure disorder, focal seizure, generalized seizure and epileptic seizure Most likely diagnosis given after review of the tests above:: Generalized seizure Nonepileptic episode Hypomagnesemia Admission Indicated Admission indicated?: not indicated Admission Request Was there a request for admission?: No Disposition Plan Disposition Plan: Discharge Discharge Attestation Discharge Attestation: The patient and all family members were given an opportunity to ask questions and understood the discharge instructions. Discharge instructions specifically effects, indications for sooner follow up or return to the emergency department, and the expected course of current diagnosis. Patient condition: Stable Discharge Plan Plan Patient Disposition: HOME (Self Care) Patient condition on transfer: Stable Prescriptions/Referrals Prescriptions/Med Rec: New topiramate [Topamax] 50 mg tablet 50 mg PO BID Qty: 60 0RF No Action cyclobenzaprine 10 mg tablet 5 mg PO BID Patient Comments: take 1 tablet by mouth twice a day metformin 500 mg tablet 500 mg PO BIDWM Patient Comments: take 1 tablet by mouth every morning and evening with meals trazodone 50 mg tablet 100 mg PO HS Patient Comments: TAKE ONE TABLET BY MOUTH AT BEDTIME ibuprofen 800 mg tablet 600 mg PO TID Patient Comments: take 1 tablet by mouth three times a day with food if needed for headache ondansetron HCl 4 mg tablet 4 mg PO Q8HR PRN (Reason: nausea and vommitting) Patient Comments: take 1 tablet by mouth every 8 hours if needed for nausea and vomiting propranolol 10 mg tablet 10 mg PO BID Patient Comments: take 1 tablet by mouth once daily divalproex 500 mg tablet,delayed release (DR/EC) 500 mg PO TID Patient Comments: take 1 tablet by mouth twice a day acetaminophen [Tylenol] 325 mg tablet 325 mg PO QID PRN (Reason: pain) Qty: 40 0RF cyclobenzaprine 10 mg tablet 10 mg PO HS Qty: 14 0RF ibuprofen 800 mg tablet 800 mg PO TID PRN (Reason: pain) Qty: 30 0RF pantoprazole [Protonix] 40 mg tablet,delayed release (DR/EC) 40 mg PO QDAY Qty: 20 0RF prazosin 1 mg Capsule 1 mg PO QPM famotidine 20 mg Tablet 20 mg PO HS PRN (Reason: Acid Reflux) loratadine 10 mg Tablet 10 mg PO QDAY PRN (Reason: Allergy Symptoms) Referrals: Maco Lemos MD [Primary Care Provider] - In 1 week Problem List Clinical Impression: Generalized seizure, Nonepileptic episode, Hypomagnesemia Patient/Caregiver Discharge Instructions Education Materials: Discharge Instructions for ..., ED Seizure, Recurrent (Adult) Additional Instructions: Return to emergency department as needed for worsening symptoms. Print Language: Japanese Stand Alone Forms: Fátima Award Info., Patient Portal Info Letter
[2024-11-18 09:45] VITALS: BP 119/90; PULSE 72; RESP 16; TEMP 36.7; O2SAT 96
[2024-11-18 10:00] VITALS: PULSE 73
[2024-11-18] MEDS: PROCHLORPERAZINE INJ 5 MG/ML VIAL 2 ML 10 MG IVP (10:15)
[2024-11-18 10:29] LABS: Basophils # (Auto) 0.0 Thou/mm3 (0.0-0.2); Basophils % (Auto) 0 % (0-2.5); Eosinophils # (Auto) 0.0 Thou/mm3 (0.0-0.5); Eosinophils % (Auto) 0 % (0-10); Hematocrit 40.2 % (36.0-46.0); Hemoglobin 13.4 g/dL (12.0-16.0); Immature Granulocytes Auto 0.03 Thou/mm3 (0.00-0.00); Lymphocytes # (Auto) 2.3 Thou/mm3 (1.0-4.8); Lymphocytes % (Auto) 26 % (10-50); Mean Corpuscular HGB Conc 33.3 g/dl (31.0-37.0); Mean Corpuscular Hemoglobin 29.5 pg (25.0-35.0); Mean Corpuscular Volume 89 fL (80-100); Monocytes # (Auto) 0.6 Thou/mm3 (0.0-0.8); Monocytes % (Auto) 7 % (0-12); Neutrophils # (Auto) 5.9 Thou/mm3 (1.8-7.7); Neutrophils % (Auto) 67 % (37-80); Nucleated Red Blood Cell # 0.00 Thou/mm3 (0.00-0.00); Nucleated Red Blood Cell % 0 /100 WBC (0); Platelet Count 390 Thou/mm3 (140-440); RDW Standard Deviation 47.1 fL (36.4-46.3); Red Blood Count 4.54 Miln/mm3 (4.00-5.20); White Blood Count 8.9 Thou/mm3 (3.6-11.0)
[2024-11-18 10:49] LABS: Alanine Aminotransferase 13 U/L (10-49); Albumin, Serum 4.8 gm/dL (3.5-5.0); Albumin/Globulin Ratio 1.7 (1.2-2.2); Alkaline Phosphatase 75 U/L (46-116); Anion Gap 13 (7-16); Aspartate Amino Transferase 16 U/L (0-34); BUN/Creatinine Ratio 10 Ratio (12-20); Bilirubin,Total 0.3 mg/dL (0.3-1.2); Blood Urea Nitrogen 11 mg/dL (9-23); Calcium 9.9 mg/dL (8.3-10.6); Calcium (Corrected) 9.9 mg/dL (8.5-10.1); Carbon Dioxide 22.2 mMol/L (20.0-31.0); Chloride 106 mMol/L (98-107); Creatinine (Component) 1.1 mg/dL (0.6-1.3); Globulin 2.8 gm/dL (2.3-3.5); Glucose 154 mg/dL (74-106); Lipase 26 U/L (12-53); Magnesium 1.3 mg/dL (1.6-2.6); Osmolality,Calculated 283 (275-295); Potassium 3.5 mMol/L (3.4-5.1); Sodium 141 mMol/L (136-145); Total Protein 7.6 gm/dL (5.7-8.2); eGFR > 60 See Note
[2024-11-18 11:09] LABS: HCG,Qualitative Serum Negative
[2024-11-18 11:29] LABS: Collection Type, Urine Clean Catch
[2024-11-18] MEDS: ACETAMINOPHEN IVPB 1,000 MG/100 ML VIAL 250 MG IV (11:33)
[2024-11-18 12:00] LABS: Amphetamine/Methamp Scrn,U Negative (Negative); Barbiturate Screen,Urine Negative (Negative); Benzodiazepines Screen,Urine Negative (Negative); Benzoylecgonine Screen, Ur Negative (Negative); Fentanyl Screen,Urine Negative (Negative); Opiate Screen,Urine Negative (Negative); THC Screen,Urine Positive (Negative)
[2024-11-18 12:11] LABS: Bacteria,Urine Rare; Bilirubin,Urine Negative (Negative); Blood,Urine 1+ (Negative); Clarity,Urine Turbid (Clear/Hazy); Color,Urine Yellow (Lt Yel-Yel); Glucose, Urine Negative (Negative); Ketones,Urine 1+ (Negative); Leukocyte Esterase,Urine Negative (Negative); Nitrite,Urine Negative (Negative); PH,Urine 6.0 (5.0-7.0); Protein,Urine Trace (Neg - Trace); RBC,Urine 5 /hpf (0-3); Specific Gravity,Urine 1.031 (1.001-1.035); Squamous Epithelial Cell,Urine 13 /hpf (0-5); Urobilinogen,Urine 2.0 mg/dL (0.0-1.0); WBC,Urine 2 /hpf (0-5)
[2024-11-18] MEDS: Magnesium Sulfate 2 GM Ivpb 2 GM/50 ML BAG IV (14:35)
[2024-11-18 16:43] VITALS: BP 128/81; PULSE 57; RESP 18; O2SAT 99
[2024-11-23 07:04] LABS: Prolactin* 10.7 ng/mL
== END 2024-11-18 16:44 | disposition home or self-care (01) ==
PROVIDERS: Emergency Provider Family Medicine; PCP Family Medicine
DX: R56.9 Unspecified convulsions (principal); E83.42 Hypomagnesemia; I10 Essential (primary) hypertension; F20.9 Schizophrenia, unspecified
CPT/HCPCS: 36415; 70450; 80053; 80307; 81001; 83690; 83735; 84146; 84703; 85025; 93005; 99283; J0131; J0780; J3475

== ENCOUNTER 2025-01-05 08:47 | Emergency (ER) | payer MEDICAID, SELFPAY ==
[2025-01-05 09:03] VITALS: PULSE 83; RESP 19; O2SAT 96
[2025-01-05 09:05] VITALS: BMI 42.0
[2025-01-05 09:06] VITALS: BP 132/79; PULSE 78; RESP 19; TEMP 36.8; O2SAT 99
--- NOTE | 2025-01-05 09:06 | PD.EDSEIZ ---
ED Seizures RME/HPI General Chief Complaint: Seizure Stated Complaint: seizure Time Seen by Provider: 01/05/25 09:04 Arrival date/time: 01/05/25 08:47 Limitations: no limitations RME / HPI RME / HPI Narrative: 44-year-old female here for evaluation of seizure. States that earlier this morning she had gotten up contrast, gotten ready for meeting regarding her housing situation. Notes that she currently lives in independent living and was to have a meeting to decide if she was going to be staying there or if she would have to leave which would then make her homeless. Was quite anxious about this. Did end up having a seizure for which her roommate called EMS and was brought in. Does have a history of seizures. Notes that she used to see neurology Dr. Shah but no longer sees him as he will not see [her] anymore due to an argument. He is on a waiting list for neurology per patient. States that she used to be on Keppra but that insurance no longer covers it so her primary doctor put her on Topamax 50 mg twice a day. Did miss her dose last night and took it this morning. Denies any other symptoms at this time. Related Data Home Medications ?Medication ?Instructions ?Recorded ?Confirmed divalproex 500 mg tablet,delayed 500 mg PO TID 09/14/20 03/08/23 release cyclobenzaprine 10 mg tablet 5 mg PO BID 10/24/20 03/08/23 metformin 500 mg tablet 500 mg PO BIDWM 10/24/20 03/08/23 ondansetron HCl 4 mg tablet 4 mg PO Q8HR PRN nausea and 10/24/20 03/08/23 vommitting propranolol 10 mg tablet 10 mg PO BID 10/24/20 03/08/23 trazodone 50 mg tablet 100 mg PO HS 10/24/20 03/08/23 famotidine 20 mg tablet 20 mg PO HS PRN Acid Reflux 03/08/23 03/08/23 loratadine 10 mg tablet 10 mg PO QDAY PRN Allergy Symptoms 03/08/23 03/08/23 prazosin 1 mg capsule 1 mg PO QPM 03/08/23 03/08/23 Previous Rx's ?Medication ?Instructions ?Recorded acetaminophen 325 mg tablet 325 mg PO QID PRN pain #40 tabs 02/07/22 (Tylenol) cyclobenzaprine 10 mg tablet 10 mg PO HS #14 tabs 05/25/24 ibuprofen 800 mg tablet 800 mg PO TID PRN pain #30 tabs 10/22/24 pantoprazole 40 mg tablet,delayed 40 mg PO QDAY #20 tabs 10/22/24 release (Protonix) topiramate 100 mg tablet (Topamax) 100 mg PO QAM #30 tabs 01/05/25 topiramate 50 mg tablet (Topamax) 50 mg PO .qhs #30 tabs 01/05/25 Allergies Allergy/AdvReac Type Severity Reaction Status Date / Time codeine Allergy Severe Anaphylaxis Verified 11/18/24 09:22 Iodine and Iodide Containing Allergy Severe Anaphylaxis Verified 11/18/24 09:22 Produc Review of Systems Review of Systems Systems Reviewed: All systems reviewed, normal except as documented Past Medical History Past Medical History NEUROLOGIC: Positive Seizures CARDIAC: Positive Cardiac Disorders and Hypertension ENDOCRINE: Positive Endocrine Disorders PSYCHO/SOCIAL: Positive Schizophrenia, Bipolar Disorder and Depression Surgical History SURGICAL: Positive Section Social History SMOKING STATUS: Former smoker 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 Past Medical History Comments PMH COMMENT: Seizure disorder ED Exam Narrative Physical exam: Constitutional: Awake, alert, nontoxic, obese, no acute distress, answering questions appropriately on initial exam. HEENT: Normocephalic, atraumatic, extraocular movements intact. Neck: Supple CV: Regular rate and rhythm, no murmurs/rubs/gallops Lungs: Clear to auscultation BL, no respiratory distress. Abd: Soft, NT, ND, no HSM noted to palpation Extremities: No deformities, no edema noted Neuro: AAOx3, CN 2-12 GIBL, no acute neuro deficit noted. Skin: Warm, dry, intact General Limitations: Present no limitations Course Course Course Narrative: 1150h: Patient has remained stable throughout ED stay. Mild low CO2 and elevated lactate likely secondary to seizure earlier. No evidence of infection clinically. Does have a history of seizure disorder. Is on Topamax 50 mg twice daily for same. Given additional dose of Topamax 50 mg as well as fluids in the ED. Advised on Topamax 100 mg daily in the morning and 50 mg daily in the evening moving forward. Stable for discharge and recommended outpatient follow-up with neurology. Quality Measures none Orders Category Date Time Status EKG (ED ONLY) *Do not use* NOW Care 01/05/25 09:07 Completed Insert IV NOW Care 01/05/25 09:06 Completed EKG (ED Only) Stat Exams 01/05/25 09:07 Draft CBC Stat Lab 01/05/25 09:05 Completed CMP [Comprehensive Metabolic Panel] Stat Lab 01/05/25 09:05 Completed Drug Screen,Urine Stat Lab 01/05/25 09:40 Completed Lactate (Lactic Acid) Stat Lab 01/05/25 09:05 Completed Magnesium Stat Lab 01/05/25 09:05 Completed Acetaminophen Ivpb [Ofirmev Inj] Med 01/05/25 11:27 Discontinued 1,000 mg in 100 ml IV NOW Ketorolac Inj [Toradol Inj] Med 01/05/25 11:27 Discontinued 30 mg IVP X1 ONE Midazolam Inj [Versed Inj] Med 01/05/25 08:58 Discontinued 2 mg IVP X1 ONE Sodium Chloride 0.9% 1000 ml [Ns] 1,000 ml Med 01/05/25 11:27 Discontinued IV 999 mls/hr Topiramate [Topamax] Med 01/05/25 09:11 Discontinued 50 mg PO X1 ONE Vital Signs Vital signs: Vital Signs Temperature 98.3 F 01/05/25 09:06 Pulse Rate 78 01/05/25 09:06 Respiratory Rate 19 01/05/25 09:06 Blood Pressure 132/79 H 01/05/25 09:06 Pulse Oximetry (%) 99 01/05/25 09:06 Oxygen Delivery Method Room Air 01/05/25 09:06 Pulse ox is 99% on room air which is adequate. Seizure Patient data External records reviewed:: [facility] previous records and EMS form Clinical information provided by:: EMS Social determinants that could affect healthcare access:: none Patient has the following chronic illnesses:: seizures, hypertension, schizophrenia How is presenting disease/condition affected by chronic disease/condition?: exacerbated by Evaluation data The following diagnostics were reviewed and interpreted by me:: lab results and EKG tracing(s) (EKG @ 09:08 AM, sinus rhythm, rate 79, no acute ischemic changes, no STEMI. ) Lab and/or radiology exams considered but not ordered:: None Interpretation Summary: as noted above Medications / Prescriptions Medications or Prescriptions considered but not ordered:: None Medication administrations:: Medication Administration History Discontinued Medications Acetaminophen (Ofirmev Inj) 1,000 mg in 100 mls @ 250 mls/hr IV NOW ONE Stop: 01/05/25 11:50 Last Infusion: 01/05/25 12:31 Dose: Infused Documented By: Admin: 01/05/25 12:07 Dose: 250 mls/hr Documented By: DARIANA Sodium Chloride (Ns) 1,000 mls @ 999 mls/hr IV .Q1H1M ONE Stop: 01/05/25 12:27 Last Infusion: 01/05/25 13:01 Dose: Infused Documented By: Admin: 01/05/25 12:07 Dose: 999 mls/hr Documented By: DARIANA Ketorolac Tromethamine (Ketorolac Inj 30 Mg/Ml Vial) 30 mg IVP X1 ONE Stop: 01/05/25 11:28 Last Admin: 01/05/25 12:07 Dose: 30 mg Documented By: DARIANA Midazolam HCl (Midazolam Inj 1 Mg/Ml Vial 2 Ml) 2 mg IVP X1 ONE Stop: 01/05/25 08:59 Last Admin: 01/05/25 10:17 Dose: Not Given Documented By: NATI Non-Admin Reason: Cancelled by Provider Topiramate (Topiramate 25 Mg Tablet) 50 mg PO X1 ONE Stop: 01/05/25 09:12 Last Admin: 01/05/25 09:53 Dose: 50 mg Documented By: NATI See above Consultations Consultation(s) initiated? (list below): No Diagnosis Seizure Differential Diagnosis: intractable seizure disorder, focal seizure, generalized seizure and epileptic seizure Most likely diagnosis given after review of the tests above:: Seizure, history of seizure disorder Admission Indicated Admission indicated?: not indicated Admission Request Was there a request for admission?: No Disposition Plan Disposition Plan: Discharge Discharge Attestation Discharge Attestation: The patient and all family members were given an opportunity to ask questions and understood the discharge instructions. Discharge instructions specifically effects, indications for sooner follow up or return to the emergency department, and the expected course of current diagnosis. Patient condition: Stable Discharge Plan Plan Patient Disposition: HOME (Self Care) Patient condition on transfer: Stable Prescriptions/Referrals Prescriptions/Med Rec: New topiramate [Topamax] 100 mg tablet 100 mg PO QAM Qty: 30 0RF topiramate [Topamax] 50 mg tablet 50 mg PO .qhs Qty: 30 0RF Discontinued ibuprofen 800 mg tablet 600 mg PO TID Patient Comments: take 1 tablet by mouth three times a day with food if needed for headache topiramate [Topamax] 50 mg tablet 50 mg PO BID Qty: 60 0RF No Action cyclobenzaprine 10 mg tablet 5 mg PO BID Patient Comments: take 1 tablet by mouth twice a day metformin 500 mg tablet 500 mg PO BIDWM Patient Comments: take 1 tablet by mouth every morning and evening with meals trazodone 50 mg tablet 100 mg PO HS Patient Comments: TAKE ONE TABLET BY MOUTH AT BEDTIME ondansetron HCl 4 mg tablet 4 mg PO Q8HR PRN (Reason: nausea and vommitting) Patient Comments: take 1 tablet by mouth every 8 hours if needed for nausea and vomiting propranolol 10 mg tablet 10 mg PO BID Patient Comments: take 1 tablet by mouth once daily divalproex 500 mg tablet,delayed release (DR/EC) 500 mg PO TID Patient Comments: take 1 tablet by mouth twice a day acetaminophen [Tylenol] 325 mg tablet 325 mg PO QID PRN (Reason: pain) Qty: 40 0RF cyclobenzaprine 10 mg tablet 10 mg PO HS Qty: 14 0RF ibuprofen 800 mg tablet 800 mg PO TID PRN (Reason: pain) Qty: 30 0RF pantoprazole [Protonix] 40 mg tablet,delayed release (DR/EC) 40 mg PO QDAY Qty: 20 0RF prazosin 1 mg Capsule 1 mg PO QPM famotidine 20 mg Tablet 20 mg PO HS PRN (Reason: Acid Reflux) loratadine 10 mg Tablet 10 mg PO QDAY PRN (Reason: Allergy Symptoms) Referrals: No Primary/Family,Physician [Primary Care Provider] - In 1 week Josias Mensah MD [Physician, Neurology] - In 1 week Problem List Clinical Impression: Epileptic seizure Patient/Caregiver Discharge Instructions Education Materials: Self-Care for Epilepsy, Living Well with Epilepsy, ED Seizure, Recurrent (Adult) Additional Instructions: Change your Topamax dose as follows: Increase your Topamax from 50 to 100 mg in the morning. Continue taking the 50 mg you usually take at night in the evening. Some general health principles that can benefit are the NEW START principles: Nutrition (plant-based, less processed foods) Exercise (daily as tolerated) Water (fresh water better for hydration rather than sodas, juice, etc) [place] (spend time in the director field services and late evening sun for your vitamin D) [place] (avoid alcohol, drugs, caffeinated beverages) Air (exposure to fresh air in nature daily when possible) Rest (adequate sleep at night, trying to go to bed no later than 9-10pm; good sleep hygiene - avoiding loud noises, phones, television prior to bed) Trust in God (spend time daily in prayer and reading scripture, contemplating a God of love) See additional resources at [email or web address], look under resources and seminars, as well as blogs. Print Language: Wallisian Stand Alone Forms: Fátima Award Info., Patient Portal Info Letter
--- NOTE | 2025-01-05 09:07 | EKG_ITS ---
[facility] Test Date: 2025-01-05 Pat Name: KENDELL HINDS Department: Room: - Gender: Female Physician Surgeon: : 1980 Requested By: Rebecca Garcia Order Number: [id number] Reading MD: Rebecca Garcia Measurements Intervals Lilly Rate: 79 P: 46 TN: 171 QRS: 8 QRSD: 105 T: 40 QT: 361 QTc: 415 Interpretive Statements SINUS RHYTHM LOW QRS VOLTAGE IN PRECORDIAL LEADS [QRS DEFLECTION < 1.0 mV IN CHEST LEADS] Compared to ECG 11/18/2024 09:33:43 Low QRS voltage now present /store/S0/[id number].pdf
--- NOTE | 2025-01-05 09:12 | PC.NURSE ---
PATIENT CAME IN FOR WITNESSED SEIZURE AT FACILITY WHERE PATIENT LIVES. PATIENT HAS HISTORY OF SEIZURES ON MEDICATION. PATIENT WAS PLACED ON SEIZURE PRECAUTIONS IN ROOM 5. PATIENT STARTED TO ACTIVELY HAVE SEIZURE IN ROOM THAT LASTED LESS THAN HALF A MINUTE. PATIENT WAS RESPONDING TO ALL QUESTIONS ASKED BY DOCTOR TRE RIGHT AFTER SEIZURE. PER MD HOLD IV VERSED ORDER.
[2025-01-05 09:17] LABS: Lactate (Lactic Acid) 3.4 mMol/L (0.4-2.0)
[2025-01-05 09:19] LABS: Basophils # (Auto) 0.0 Thou/mm3 (0.0-0.2); Basophils % (Auto) 0 % (0-2.5); Eosinophils # (Auto) 0.1 Thou/mm3 (0.0-0.5); Eosinophils % (Auto) 1 % (0-10); Hematocrit 38.0 % (36.0-46.0); Hemoglobin 12.5 g/dL (12.0-16.0); Immature Granulocytes Auto 0.04 Thou/mm3 (0.00-0.00); Lymphocytes # (Auto) 4.0 Thou/mm3 (1.0-4.8); Lymphocytes % (Auto) 39 % (10-50); Mean Corpuscular HGB Conc 32.9 g/dl (31.0-37.0); Mean Corpuscular Hemoglobin 29.6 pg (25.0-35.0); Mean Corpuscular Volume 90 fL (80-100); Monocytes # (Auto) 1.0 Thou/mm3 (0.0-0.8); Monocytes % (Auto) 9 % (0-12); Neutrophils # (Auto) 5.1 Thou/mm3 (1.8-7.7); Neutrophils % (Auto) 50 % (37-80); Nucleated Red Blood Cell # 0.00 Thou/mm3 (0.00-0.00); Nucleated Red Blood Cell % 0 /100 WBC (0); Platelet Count 297 Thou/mm3 (140-440); RDW Standard Deviation 49.3 fL (36.4-46.3); Red Blood Count 4.22 Miln/mm3 (4.00-5.20); White Blood Count 10.3 Thou/mm3 (3.6-11.0)
--- NOTE | 2025-01-05 09:28 | PC.NURSE ---
CALLED PHARMACY FOR PATIENTS TOPAMAX MEDICATION
[2025-01-05] MEDS: TOPIRAMATE 25 MG TABLET 50 MG PO (09:53)
[2025-01-05 10:07] LABS: Amphetamine/Methamp Scrn,U Negative (Negative); Barbiturate Screen,Urine Negative (Negative); Benzodiazepines Screen,Urine Negative (Negative); Benzoylecgonine Screen, Ur Negative (Negative); Fentanyl Screen,Urine Negative (Negative); Opiate Screen,Urine Negative (Negative); THC Screen,Urine Positive (Negative)
[2025-01-05 10:07] LABS: Alanine Aminotransferase 8 U/L (10-49); Albumin, Serum 4.1 gm/dL (3.5-5.0); Albumin/Globulin Ratio 1.8 (1.2-2.2); Anion Gap 10 (7-16); Aspartate Amino Transferase 11 U/L (0-34); BUN/Creatinine Ratio 11 Ratio (12-20); Bilirubin,Total 0.2 mg/dL (0.3-1.2); Blood Urea Nitrogen 10 mg/dL (9-23); Calcium 9.5 mg/dL (8.3-10.6); Calcium (Corrected) 9.5 mg/dL (8.5-10.1); Carbon Dioxide 19.9 mMol/L (20.0-31.0); Chloride 112 mMol/L (98-107); Creatinine (Component) 0.9 mg/dL (0.6-1.3); Estimated Creatinine Clearance 88.5 mL/min (>60); Globulin 2.3 gm/dL (2.3-3.5); Glucose 118 mg/dL (74-106); Magnesium 2.0 mg/dL (1.6-2.6); Osmolality,Calculated 283 (275-295); Potassium 3.6 mMol/L (3.4-5.1); Sodium 142 mMol/L (136-145); Total Protein 6.4 gm/dL (5.7-8.2); eGFR > 60 See Note
[2025-01-05 11:05] LABS: Alkaline Phosphatase 60 U/L (46-116)
[2025-01-05] MEDS: SODIUM CHLORIDE 0.9% 1000 ML 1,000 ML 999 ML IV (12:07)
[2025-01-05] MEDS: ACETAMINOPHEN IVPB 1,000 MG/100 ML VIAL 250 MG IV (12:07)
[2025-01-05] MEDS: KETOROLAC INJ 30 MG/ML VIAL IVP (12:07)
[2025-01-05 12:15] LABS: Reflex Lactate? Y
[2025-01-05 12:31] VITALS: BP 123/91; PULSE 72; RESP 19; TEMP 36.6; O2SAT 98
--- NOTE | 2025-01-05 13:02 | PC.NURSE ---
DR. TOLEDO MADE AWARE PATIENT'S REPEAT LACTIC ACID HAS NOT BEEN DRAWN. PER MD OKAY TO DISCHARGE AND CANCEL LACTIC ACID. PATIENT STATES SHE FEELS BETTER AND HER HEADACHE IS GONE. PATIENT ABLE TO WALK UPON DISCHARGE.
== END 2025-01-05 13:07 | disposition home or self-care (01) ==
PROVIDERS: Emergency Provider Family Medicine
DX: G40.909 Epilepsy, unspecified, not intractable, without status epilepticus (principal); R94.31 Abnormal electrocardiogram [ECG] [EKG]
CPT/HCPCS: 36415; 80053; 80307; 83605; 83735; 85025; 93005; 96365; 96375; 99283; J0131; J1885; J7030; A9270

== ENCOUNTER 2025-02-04 19:10 | Emergency (ER) | payer MEDICAID, SELFPAY ==
[2025-02-04 19:14] VITALS: PULSE 64; RESP 18; O2SAT 95
[2025-02-04 19:17] VITALS: BMI 42.0
[2025-02-04 19:22] VITALS: BP 121/89; PULSE 64; RESP 19; TEMP 36.8; O2SAT 98
--- NOTE | 2025-02-04 19:31 | PD.EDSEIZ ---
ED Seizures RME/HPI General Chief Complaint: Seizure Stated Complaint: SEIZURE Time Seen by Provider: 02/04/25 19:31 Arrival date/time: 02/04/25 19:10 RME / HPI RME / HPI Narrative: Dr. Alejandre?s Main ED Evaluation: 45yo female with a history of seizures BIBA from home presents to the ED for a chief complaint of a seizure. Patient states she was sitting on her bed when she blacked out . Her roommate informed her that she fell forward and hit her head during the seizure. Patient does have a headache, but denies any neck or facial pain. Patient states she has been taking her Topamax as prescribed. She denies any other associated symptoms. Patient notes she used to be on Keppra 500mg BID and felt that was working better for her than the Topamax is, but no longer has it due to insurance issues. Related Data Home Medications ?Medication ?Instructions ?Recorded ?Confirmed divalproex 500 mg tablet,delayed 500 mg PO TID 09/14/20 03/08/23 release cyclobenzaprine 10 mg tablet 5 mg PO BID 10/24/20 03/08/23 metformin 500 mg tablet 500 mg PO BIDWM 10/24/20 03/08/23 ondansetron HCl 4 mg tablet 4 mg PO Q8HR PRN nausea and 10/24/20 03/08/23 vommitting propranolol 10 mg tablet 10 mg PO BID 10/24/20 03/08/23 trazodone 50 mg tablet 100 mg PO HS 10/24/20 03/08/23 famotidine 20 mg tablet 20 mg PO HS PRN Acid Reflux 03/08/23 03/08/23 loratadine 10 mg tablet 10 mg PO QDAY PRN Allergy Symptoms 03/08/23 03/08/23 prazosin 1 mg capsule 1 mg PO QPM 03/08/23 03/08/23 Previous Rx's ?Medication ?Instructions ?Recorded acetaminophen 325 mg tablet 325 mg PO QID PRN pain #40 tabs 02/07/22 (Tylenol) cyclobenzaprine 10 mg tablet 10 mg PO HS #14 tabs 05/25/24 ibuprofen 800 mg tablet 800 mg PO TID PRN pain #30 tabs 10/22/24 pantoprazole 40 mg tablet,delayed 40 mg PO QDAY #20 tabs 10/22/24 release (Protonix) topiramate 100 mg tablet (Topamax) 100 mg PO QAM #30 tabs 01/05/25 topiramate 50 mg tablet (Topamax) 50 mg PO .qhs #30 tabs 01/05/25 levetiracetam 500 mg tablet 500 mg PO BID #60 tabs 02/04/25 Allergies Allergy/AdvReac Type Severity Reaction Status Date / Time codeine Allergy Severe Anaphylaxis Verified 11/18/24 09:22 Iodine and Iodide Containing Allergy Severe Anaphylaxis Verified 11/18/24 09:22 Produc Review of Systems Review of Systems Systems Reviewed: All systems reviewed, normal except as documented Past Medical History Past Medical History NEUROLOGIC: Positive Seizures CARDIAC: Positive Cardiac Disorders and Hypertension; Negative Congestive Heart Failure RESPIRATORY: Negative Chronic Obstructive Pulmonary Disease (COPD) GENITOURINARY: Negative Renal Disease ENDOCRINE: Positive Endocrine Disorders; Negative Diabetes Mellitus Type 1 or Diabetes Mellitus Type 2 PSYCHO/SOCIAL: Positive Schizophrenia, Bipolar Disorder and Depression Surgical History SURGICAL: Positive Section Social History SMOKING STATUS: Never smoker 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 ED Exam Narrative Physical exam: Generally patient is alert oriented x 3 in no obvious distress, heart regular rate and rhythm, lungs clear to auscultation equal bilaterally, abdomen soft bowel sounds present nondistended nontender, neurologic exam shows [place] Coma Scale of 15 without focal motor deficit Course Quality Measures none Orders Category Date Time Status EKG (ED ONLY) *Do not use* NOW Care 02/04/25 19:29 Completed EKG (ED Only) Stat Exams 02/04/25 19:29 Ordered Acetaminophen Tab [Tylenol Tab] Med 02/04/25 19:37 Discontinued 650 mg PO X1 ONE levETIRAcetam INJ [Keppra Inj] Med 02/04/25 19:37 Discontinued 1,000 mg IVP X1 ONE Vital Signs Vital signs: Vital Signs Temperature 98.2 F 02/04/25 19:22 Pulse Rate 64 02/04/25 19:22 Respiratory Rate 19 02/04/25 19:22 Blood Pressure 121/89 H 02/04/25 19:22 Pulse Oximetry (%) 98 02/04/25 19:22 Oxygen Delivery Method Room Air 02/04/25 19:22 Seizure MDM Narrative MDM Narrative:: Scribe Attestation: 02/04/25 - I, Heather Canelo, am scribing for and in the presence of Dr. Alejandre. Patient has a known seizure disorder. She is compliant with her Topamax. She has been on Keppra in the past and wants to go back to being on Keppra. There is problems with insurance paying for the Keppra in the past which is the reason why she got off of it. Patient was given Keppra 1000 mg IV here in the emergency room. She was observed for prolonged length of time without seizure activity. Patient will be discharged in stable condition to take Keppra as prescribed. If she is able to get the Keppra filled she can stop the Topamax. If she cannot get the Keppra filled she is to continue the Topamax. Patient data External records reviewed:: [facility] previous records (Per chart review, patient was seen here on 01/05/25 for an epileptic seizure.) and EMS form Clinical information provided by:: EMS Social determinants that could affect healthcare access:: none Patient has the following chronic illnesses:: schizophrenia, bipolar disorder, seizures, HTN How is presenting disease/condition affected by chronic disease/condition?: caused by Evaluation data The following diagnostics were reviewed and interpreted by me:: EKG tracing(s) Lab and/or radiology exams considered but not ordered:: none Interpretation Summary: None Medications / Prescriptions Medications or Prescriptions considered but not ordered:: None Medication administrations:: Medication Administration History Discontinued Medications Acetaminophen (Acetaminophen 325 Mg Tablet) 650 mg PO X1 ONE Stop: 02/04/25 19:38 Last Admin: 02/04/25 19:48 Dose: 650 mg Documented By: BRITNI Levetiracetam (Levetiracetam Inj 100 Mg/Ml Vial 5ml) 1,000 mg IVP X1 ONE Stop: 02/04/25 19:38 Last Admin: 02/04/25 19:48 Dose: 1,000 mg Documented By: BRITNI None Consultations Consultation(s) initiated? (list below): No Diagnosis Seizure Differential Diagnosis: other Most likely diagnosis given after review of the tests above:: None Admission Indicated Admission indicated?: not indicated Admission Request Was there a request for admission?: No Disposition Plan Disposition Plan: Discharge Discharge Attestation Discharge Attestation: The patient and all family members were given an opportunity to ask questions and understood the discharge instructions. Discharge instructions specifically effects, indications for sooner follow up or return to the emergency department, and the expected course of current diagnosis. Patient condition: Stable Discharge Plan Plan Patient Disposition: HOME (Self Care) Prescriptions/Referrals Prescriptions/Med Rec: New levetiracetam 500 mg tablet 500 mg PO BID Qty: 60 0RF No Action cyclobenzaprine 10 mg tablet 5 mg PO BID Patient Comments: take 1 tablet by mouth twice a day metformin 500 mg tablet 500 mg PO BIDWM Patient Comments: take 1 tablet by mouth every morning and evening with meals trazodone 50 mg tablet 100 mg PO HS Patient Comments: TAKE ONE TABLET BY MOUTH AT BEDTIME ondansetron HCl 4 mg tablet 4 mg PO Q8HR PRN (Reason: nausea and vommitting) Patient Comments: take 1 tablet by mouth every 8 hours if needed for nausea and vomiting propranolol 10 mg tablet 10 mg PO BID Patient Comments: take 1 tablet by mouth once daily divalproex 500 mg tablet,delayed release (DR/EC) 500 mg PO TID Patient Comments: take 1 tablet by mouth twice a day acetaminophen [Tylenol] 325 mg tablet 325 mg PO QID PRN (Reason: pain) Qty: 40 0RF cyclobenzaprine 10 mg tablet 10 mg PO HS Qty: 14 0RF ibuprofen 800 mg tablet 800 mg PO TID PRN (Reason: pain) Qty: 30 0RF pantoprazole [Protonix] 40 mg tablet,delayed release (DR/EC) 40 mg PO QDAY Qty: 20 0RF topiramate [Topamax] 100 mg tablet 100 mg PO QAM Qty: 30 0RF topiramate [Topamax] 50 mg tablet 50 mg PO .qhs Qty: 30 0RF prazosin 1 mg Capsule 1 mg PO QPM famotidine 20 mg Tablet 20 mg PO HS PRN (Reason: Acid Reflux) loratadine 10 mg Tablet 10 mg PO QDAY PRN (Reason: Allergy Symptoms) Problem List Clinical Impression: Epileptic seizure Patient/Caregiver Discharge Instructions Education Materials: ED Seizure, Recurrent (Adult) Additional Instructions: Take the Keppra as prescribed. If you cannot get the Keppra filled continue the Topamax. Print Language: Lithuanian Stand Alone Forms: [facility] Award Info., Patient Portal Info Letter
[2025-02-04] MEDS: levETIRAcetam INJ 100 MG/ML VIAL 5ML 1000 MG IVP (19:48)
[2025-02-04] MEDS: ACETAMINOPHEN 325 MG TABLET 650 MG PO (19:48)
[2025-02-04 21:00] VITALS: BP 120/94; PULSE 68; RESP 20; O2SAT 99
== END 2025-02-04 21:01 | disposition home or self-care (01) ==
LOC: SERX 20:57
PROVIDERS: Emergency Provider Emergency Medicine; PCP Family Medicine
DX: G40.909 Epilepsy, unspecified, not intractable, without status epilepticus (principal)
CPT/HCPCS: 93005; 96374; 99282; J1953; A9270

== ENCOUNTER 2025-03-10 08:49 | Emergency (ER) | payer MEDICAID, SELFPAY ==
[2025-03-10 09:00] VITALS: BP 116/81; PULSE 82; RESP 16; TEMP 37; O2SAT 97; BMI 42.6
--- NOTE | 2025-03-10 09:09 | PD.EDRME ---
Rapid Medical Screening Exam RME Arrival date/time: 03/10/25 08:49 45-year-old female presents emergency department today for complaints of right lower abdominal pain x 1 day Chief Complaint: Abdominal Pain Vital signs: Vital Signs Temperature 98.6 F 03/10/25 09:00 Pulse Rate 82 03/10/25 09:00 Respiratory Rate 16 03/10/25 09:00 Blood Pressure 116/81 03/10/25 09:00 Pulse Oximetry (%) 97 03/10/25 09:00 Oxygen Delivery Method Room Air 03/10/25 09:00 Vital signs reviewed by provider: Yes Exam: On exam patient has pain and tenderness in the right lower quadrant Clinical Impression: Labs and imaging obtained
--- NOTE | 2025-03-10 09:29 | XR_ITS ---
Examination: CT abdomen and pelvis without contrast. Coronal 3-D reconstructions. Sagittal 2-D reconstructions. Date and time of exam: March 11, 2025, 1319 hours INDICATION: Onset abdominal pain today CTDI: vol (mGy): 11 DLP: (mGycm): 693 Technique: Axial images of the abdomen have been obtained, 3 mm slice thickness Intravenous contrast material has not been administered. Low dose protocols were performed. One or more of the following dose reduction techniques were used; automated exposure control, adjustment of the mA and/or KV according to patient size, use of iterative reconstruction technique. Findings: Suspicious for 20 mm upper right lobe liver lesion, axial image 49 No biliary tract dilatation Absent gallbladder Spleen is not enlarged No pancreatic or adrenal mass No renal or ureteral calculi, no hydronephrosis Normal appendix No bowel obstruction Left pelvic cyst, 4.1 cm No bladder mass or bladder calculi Chronic wedging T12, T11 with prominent anterior osteophyte formation IMPRESSION: Recommend hepatic sonography to exclude 20 mm upper right lobe liver lesion No renal or ureteral calculi, no hydronephrosis Normal appendix
[2025-03-10 09:37] LABS: Collection Type, Urine Clean Catch
[2025-03-10 09:40] LABS: Basophils # (Auto) 0.0 Thou/mm3 (0.0-0.2); Basophils % (Auto) 0 % (0-2.5); Eosinophils # (Auto) 0.1 Thou/mm3 (0.0-0.5); Eosinophils % (Auto) 1 % (0-10); Hematocrit 39.6 % (36.0-46.0); Hemoglobin 13.2 g/dL (12.0-16.0); Immature Granulocytes Auto 0.05 Thou/mm3 (0.00-0.00); Lymphocytes # (Auto) 4.0 Thou/mm3 (1.0-4.8); Lymphocytes % (Auto) 39 % (10-50); Mean Corpuscular HGB Conc 33.3 g/dl (31.0-37.0); Mean Corpuscular Hemoglobin 29.8 pg (25.0-35.0); Mean Corpuscular Volume 89 fL (80-100); Monocytes # (Auto) 1.0 Thou/mm3 (0.0-0.8); Monocytes % (Auto) 10 % (0-12); Neutrophils # (Auto) 5.1 Thou/mm3 (1.8-7.7); Neutrophils % (Auto) 50 % (37-80); Nucleated Red Blood Cell # 0.00 Thou/mm3 (0.00-0.00); Nucleated Red Blood Cell % 0 /100 WBC (0); Platelet Count 291 Thou/mm3 (140-440); RDW Standard Deviation 45.1 fL (36.4-46.3); Red Blood Count 4.43 Miln/mm3 (4.00-5.20); White Blood Count 10.2 Thou/mm3 (3.6-11.0)
[2025-03-10 09:47] LABS: HCG Qualitative,Urine Negative
[2025-03-10 09:52] LABS: Bacteria,Urine 1+; Bilirubin,Urine Negative (Negative); Blood,Urine Negative (Negative); Clarity,Urine Clear (Clear/Hazy); Color,Urine Lt-Yellow (Lt Yel-Yel); Glucose, Urine Negative (Negative); Ketones,Urine Negative (Negative); Leukocyte Esterase,Urine Negative (Negative); Nitrite,Urine Negative (Negative); PH,Urine 7.5 (5.0-7.0); Protein,Urine Negative (Neg - Trace); RBC,Urine < 1 /hpf (0-3); Specific Gravity,Urine 1.011 (1.001-1.035); Squamous Epithelial Cell,Urine 2 /hpf (0-5); Urobilinogen,Urine Negative mg/dL (0.0-1.0); WBC,Urine < 1 /hpf (0-5)
[2025-03-10 10:01] LABS: Alanine Aminotransferase 14 U/L (10-49); Albumin, Serum 4.7 gm/dL (3.5-5.0); Albumin/Globulin Ratio 1.6 (1.2-2.2); Alkaline Phosphatase 74 U/L (46-116); Anion Gap 8 (7-16); Aspartate Amino Transferase 15 U/L (0-34); BUN/Creatinine Ratio 12 Ratio (12-20); Bilirubin,Total 0.2 mg/dL (0.3-1.2); Blood Urea Nitrogen 11 mg/dL (9-23); Calcium 9.0 mg/dL (8.3-10.6); Calcium (Corrected) 9.0 mg/dL (8.5-10.1); Carbon Dioxide 24.8 mMol/L (20.0-31.0); Chloride 108 mMol/L (98-107); Creatinine (Component) 0.9 mg/dL (0.6-1.3); Estimated Creatinine Clearance 88.2 mL/min (>60); Globulin 2.9 gm/dL (2.3-3.5); Glucose 89 mg/dL (74-106); Lipase 38 U/L (12-53); Osmolality,Calculated 279 (275-295); Potassium 3.8 mMol/L (3.4-5.1); Sodium 141 mMol/L (136-145); Total Protein 7.6 gm/dL (5.7-8.2); eGFR > 60 See Note
[2025-03-10 10:05] LABS: Culture Indicated,Urine Yes
== END 2025-03-10 10:37 | disposition left against medical advice (07) ==
PROVIDERS: Nurse Practitioner Primary Care; Emergency Provider Emergency Medicine; PCP Family Medicine
DX: R10.31 Right lower quadrant pain (principal); R10.813 Right lower quadrant abdominal tenderness; Z53.29 Procedure and treatment not carried out because of patient's decision for other reasons
CPT/HCPCS: 36415; 74176; 80053; 81001; 81025; 83690; 85025; 87086; 99282